=== PATIENT | male | born 1990 | race Caucasian/White ===

== ENCOUNTER 2019-06-29 22:44 | Emergency (ER) | payer OTHER, SELFPAY ==
--- NOTE | ~2019-06-29 | XR_ITS ---
EXAMINATION: XR chest 2V 06/30/2019 00:31 INDICATION: Shortness of breath PROCEDURE: 2 view chest COMPARISON: 05/16/2019 FINDINGS: The lungs are clear. The cardiomediastinal silhouette is within normal limits. There are no pleural effusions. There is no pneumothorax suspected. IMPRESSION: 1: NO ACUTE CARDIOPULMONARY DISEASE. Reviewed, dictated and finalized at location A. 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
[2019-06-29 23:02] VITALS: BP 138/98; PULSE 74; RESP 20; TEMP 37; O2SAT 99
[2019-06-30 00:03] VITALS: BP 123/91; PULSE 72; RESP 20; TEMP 36.8; O2SAT 100
--- NOTE | 2019-06-30 00:19 | ED.FEVER ---
HPI - Fever General Chief Complaint: Fever Stated Complaint: Cough,Fever,Chills Time Seen by Provider: 06/30/19 00:19 Source: patient and RN notes reviewed Mode of arrival: ambulatory Limitations: no limitations History of Present Illness HPI Narrative: Pt is a 29 y/o male presenting to the ED c/o fever. Pt reports he has been experiencing a subjective fever for about 1-2 weeks. Pt also reports chills and productive cough with yellow and green phlegm. Pt states he made an appointment with his PCP for 07/12 but notes his instructed him to come in due to waking the baby up tonight. Pertinent past history: other (None) Onset (ago): week(s) (1-2) Associated symptoms: chills and cough (Productive with green and yellow phlegm) Related Data Allergies Allergy/AdvReac Type Severity Reaction Status Date / Time No Known Allergies Allergy Verified 06/30/19 00:03 Review of Systems Review of Systems: All systems reviewed & are unremarkable except as noted in HPI and below Constitutional: Constitutional: Reports chills and Reports fever(s) (Subjective) Respiratory: Respiratory: Reports cough (Productive with green and yellow phlegm) PMFSH Past Medical History Medical History Bronchitis HLD (hyperlipidemia) Pharyngitis Surgical History Surgical History H/O right wrist surgery History of cardiac cath 2016 History of tympanostomy Family History Family History Other Cerebrovascular accident Diabetes mellitus Family history of arthritis Family history of congestive heart failure Family history of gout Family history of heart disease in male family member before age 55 Family history of malignant neoplasm Hypertension Social History Social History Smoking status: Former smoker Gender identity (if verbalized by the patient): Male Exam Narrative: Exam Narrative: GENERAL: Well-appearing, well-nourished, and in no acute distress. HEAD: Normocephalic, atraumatic. EYES: PERRLA and EOMI. ENT: Nares clear, Mucous membranes moist. NECK: Supple. CHEST: Clear to auscultation. No respiratory distress. HEART: Regular rate and rhythm. No murmur heard. Normal peripheral pulses. ABDOMEN: Soft, non tender, non distended, normal active bowel sounds. EXTREMITIES: Normal range of motion. No edema. SKIN: Warm, dry, no rash. NEURO: No focal deficits. Alert and oriented x3. PSYCH: Normal mood and affect. 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 Advised him to take antibiotic as prescribed, follow-up with his primary doctor. Vital Signs Vital signs: Vital Signs Temperature 37.0 C 06/29/19 23:02 Pulse Rate 74 06/29/19 23:02 Respiratory Rate 20 06/29/19 23:02 Blood Pressure 138/98 H 06/29/19 23:02 Pulse Oximetry 99 06/29/19 23:02 Temperature 36.8 C 06/30/19 00:03 Pulse Rate 72 06/30/19 00:03 Respiratory Rate 20 06/30/19 00:03 Blood Pressure 123/91 H 06/30/19 00:03 Pulse Oximetry 100 06/30/19 00:03 MDM - Fever Lab Data Labs: Influenza A Screen Negative Reference Range: Negative Influenza B Screen Negative Reference Range: Negative Imaging Data My impression: CXR 0030 06/30/2019 Impression by ED Physician: Negative. Discharge Plan Discharge Clinical Impression: Bronchitis Patient Disposition: Home, Self-Care Condition: Stable Instructions: Acute Bronchitis (ED) Prescriptions: New azithromycin [Zithromax Z-Kendall] 250 mg tablet 250 mg PO DAILY 5 Days Qty: 5 RF: 0 Follow-up/Referrals: UNKNOWN,DOCTOR [Primary Care Provider] - Garfield Thompson MD [Physician] - Time of Disposition: 01:09
[2019-06-30 01:18] VITALS: BP 143/88; PULSE 77; RESP 24; O2SAT 99
== END 2019-06-30 01:18 | disposition home or self-care (01) ==
PROVIDERS: Emergency Provider Family Medicine
DX: J40 Bronchitis, not specified as acute or chronic (principal); E78.5 Hyperlipidemia, unspecified; Z87.891 Personal history of nicotine dependence
CPT/HCPCS: 71046; 87804; 99283

== ENCOUNTER 2019-09-28 00:30 | Emergency (ER) | payer OTHER, SELFPAY ==
[2019-09-28] VITALS (20 sets, daily range): BP systolic 111–133; BP diastolic 79–96; PULSE 64–101; RESP 13–23; TEMP 36.6–36.8; O2SAT 90–100
--- NOTE | ~2019-09-28 | XR_ITS ---
EXAMINATION: XR chest 2V DATE: 09/28/2019 01:09 INDICATION: Midline chest pain. TECHNIQUE: Frontal and lateral views of the chest were obtained. COMPARISON: Chest 2 views 06/30/2019, thoracic spine CT 05/16/2019 FINDINGS: The chest demonstrates clear lungs without pneumonia, pleural effusion, or pneumothorax. Th e heart size is normal. IMPRESSION: 1. No acute cardiopulmonary disease. Reviewed, dictated and finalized at location A.
--- NOTE | 2019-09-28 00:51 | ECG_ITS ---
Measurements Intervals [place] Rate: 92 P: 29 NH: 163 QRS: 18 QRSD: 101 T: -5 QT: 337 QTc: 417 Interpretive Statements SINUS RHYTHM WITH SINUS ARRHYTHMIA BORDERLINE ST-T WAVE ABNORMALITY- INFERIOR LEADS BASELINE ARTIFACT- V1 BORDERLINE ECG Electronically Signed On 09-28-2019 7:04:10 CDT by Luis Saul D.O.
--- NOTE | 2019-09-28 00:51 | ED.CHESTPAIN ---
HPI - Chest Pain General Chief Complaint: Chest Pain Stated Complaint: cp and sob Time Seen by Provider: 09/28/19 00:33 Source: RN notes reviewed History of Present Illness HPI narrative: Patient presents emergency department from home for chest pain. Patient states symptoms began approximately 1 hour ago. States symptoms awoke him from his sleep the pain is located over the left inferior chest and is described as a pressure. The pain does not radiate. Nothing makes the pain better or worse. Notes associated shortness of breath. He denies any fevers or chills abdominal pain nausea vomiting or any other symptoms Related Data Allergies Allergy/AdvReac Type Severity Reaction Status Date / Time No Known Allergies Allergy Verified 06/30/19 00:03 Review of Systems Review of Systems: Narrative: Gen.: Denies fevers or chills Eyes: Denies eye pain or visual change ENT: Denies congestion Respiratory: Reports associated shortness of breath CV: Reports chest pain GI: Denies abdominal pain nausea, emesis or diarrhea denies burning, urgency, frequency or hematuria Musculoskeletal: Denies back pain or muscle pain Neuro: Denies numbness, tingling, weakness or focal weakness Skin: Denies rash Except as documented, all other systems reviewed and negative PMFSH Past Medical History Medical History Bronchitis HLD (hyperlipidemia) Pharyngitis Social History Social History Smoking status: Former smoker Gender identity (if verbalized by the patient): Male Exam Narrative: Exam Narrative: APPEARANCE: No acute distress, nontoxic, resting in bed EYES: EOMI HEENT: Normocephalic, atraumatic, OMM RESPIRATORY: No respiratory distress Clear to auscultation bilaterally with no rhonchi wheezing or rales. CARDIOVASCULAR: Regular rate and rhythm without murmurs rubs or gallops. ABDOMINAL: Soft, nontender, nondistended, no rebound or guarding MUSCULOSKELETAl: Moves all extremities. No clubbing, cyanosis or edema. NEURO: Awake and alert. Following commands, speech normal, no focal deficits SKIN:: Warm, dry. No rashes lesions or abrasions PSYCHIATRIC: Normal affect/mood, Course Course Emergency Course: Patient states pain was almost completely resolved with GI cocktail and is now resolved with Toradol Discussed with patient results of workup and diagnosis. Discussed need for follow-up with primary care, proper use of medication, and reasons to return to the emergency department. Patient understands and agrees to current treatment plan Vital Signs Vital signs: Vital Signs Temperature 98.3 F 09/28/19 00:35 Pulse Rate 88 09/28/19 00:35 Respiratory Rate 13 09/28/19 00:35 Blood Pressure 131/96 H 09/28/19 00:35 Pulse Oximetry 99 09/28/19 00:35 Temperature 98.3 F 09/28/19 00:35 Pulse Rate 72 09/28/19 03:15 Respiratory Rate 20 09/28/19 03:15 Blood Pressure 111/79 09/28/19 02:01 Pulse Oximetry 98 09/28/19 03:15 MDM - Chest Pain MDM Narrative Medical decision making narrative: Patient's EKGs and labs are without significant high risk changes. Cardiac risk factors reviewed. Patient is felt likely low risk for ACS and reasonable for further risk stratification testing as an outpatient. Pain was not sudden or maximal in onset without tearing or ripping quality. No other signs of symptoms suggest aortic dissection. A low-risk Wells criteria is noted, PE is felt to be unlikely. No pneumonia seen on evaluation today. Patient is felt to be a reasonable candidate for continued evaluation as an outpatient Lab Data Result diagrams: 09/28/19 01:00 09/28/19 01:00 Labs: Lab Results 09/28/19 09/28/19 09/28/19 Range/Units 01:00 01:00 01:00 WBC 9.6 (4.5-10.0) K/mm3 RBC 5.38 (4.6-6.20) M/mm3 Hgb 15.7 (14.0-18.0) g/dL Hct 46.4 (42.0-52.0) % MCV 86.2 (80-100)
[2019-09-28 01:10] LABS: Basophils Absolute Auto 0.1 K/mm3 (0.0-0.1); Basophils Percent Auto 0.6 % (0.2-1.2); Eosinophils Absolute Auto 0.3 K/mm3 (0-0.3); Eosinophils Percent Auto 3.2 % (0-4.4); Hematocrit 46.4 % (42.0-52.0); Hemoglobin 15.7 g/dL (14.0-18.0); Immature Granulocyte Absolute 0.04 K/mm3 (0.00-0.031); Immature Granulocyte Percent A 0.4 % (0-0.5); Lymphocytes Absolute Auto 2.88 K/mm3 (0.9-3.2); Mean Corpuscular HGB Conc 33.8 g/dl (32-36); Mean Corpuscular Hemoglobin 29.2 pg (26-34); Mean Corpuscular Volume 86.2 fl (80-100); Mean Platelet Volume 10.8 fl (7.4-10.4); Monocytes Absolute Auto 0.8 K/mm3 (0.1-0.6); Monocytes Percent Auto 8.4 % (2.6-8.5); Neutrophils Absolute Auto 5.5 K/mm3 (1.3-6.7); Neutrophils Percent Auto 57.4 % (45.5-73.1); Platelet Count Result 236 k/mm3 (150-375); Red Blood Count 5.38 M/mm3 (4.6-6.20); Red Cell Distribution Width 12.7 % (11.5-14.5); White Blood Count 9.6 K/mm3 (4.5-10.0)
[2019-09-28 01:21] LABS: Alanine Aminotransferase 43 U/L (4-50); Albumin Level 4.8 g/dL (3.5-5.1); Alkaline Phosphatase 103 U/L (38-126); Aspartate Amino Transferase 31 U/L (17-59); Bilirubin,Total 0.8 mg/dL (0.2-1.3); Blood Urea Nitrogen 16 mg/dL (9-20); Calcium 9.8 mg/dL (8.4-10.2); Carbon Dioxide 30 mmol/L (22-30); Chloride 101 mmol/L (98-107); Estimated CRCL calculation 128 ml/min; Estimated Glomerular Filt Rate > 60; Glucose 106 mg/dL (75-110); Lipase 92 U/L (23-300); Potassium 3.6 mmol/L (3.4-5.0); Sodium 138 mmol/L (137-145)
[2019-09-28 01:33] LABS: Troponin I < 0.012 ng/mL (0.000-0.034)
[2019-09-28 01:39] LABS: INR 0.9; Prothrombin Time 12.1 Seconds (11.1-14.7)
[2019-09-28 01:42] LABS: Partial Thromboplastin Time 25.8 SECONDS (22.3-36.8)
[2019-09-28 01:46] LABS: D Dimer < 0.22 ug/mL (<0.48)
[2019-09-28] MEDS: FAMOTIDINE 20 MG/2 ML VIAL IV PUSH (01:57)
[2019-09-28] MEDS: KETOROLAC 30 MG/ML VIAL (*BKC) IV PUSH (01:57)
[2019-09-28 04:21] LABS: Troponin I < 0.012 ng/mL (0.000-0.034)
== END 2019-09-28 04:38 | disposition home or self-care (01) ==
PROVIDERS: Emergency Provider Emergency Medicine
DX: R07.89 Other chest pain (principal); E78.5 Hyperlipidemia, unspecified; Z87.891 Personal history of nicotine dependence; R94.31 Abnormal electrocardiogram [ECG] [EKG]
CPT/HCPCS: 36415; 71046; 80053; 83690; 84484; 85025; 85380; 85610; 85730; 93005; 96374; 96375; 99284; A9270; J1885

== ENCOUNTER 2019-12-23 00:14 | Emergency (ER) | payer OTHER, SELFPAY ==
--- NOTE | ~2019-12-23 | CT_ITS ---
EXAMINATION: CT abdomen pelvis w con DATE: 12/23/2019 02:39 INDICATION: Right upper quadrant abdominal pain. TECHNIQUE: Computed tomography (CT) of the abdomen and pelvis was performed with 100 mL Omnipaque-350 intravenous contrast. Automated exposure control and iterative reconstruction technique were employe d. The dose-length product was 1524.36 mGy-cm. COMPARISON: None FINDINGS: Lung bases are clear. Heart size is normal. No pericardial or pleural effusion. Heterogeneous pattern of diffuse hepatic steatosis. Gallbladder, spleen, pancreas, bilateral adrenal glands and kidneys ar e normal. Bowels including the appendix are normal. Small bilateral fat-containing inguinal hernias. Bladder and prostate are normal. No free intraperitoneal gas or fluid. No pathologically enlarged abd ominal or pelvic lymphadenopathy. Bones are unremarkable. IMPRESSION: 1. No acute intra-abdominal/pelvic process. 2. Small bilateral fat-containing inguinal hernias. 3. Diffuse hepatic steatosis. Reviewed, dictated and finalized at location A.
[2019-12-23 00:17] VITALS: BP 140/86; PULSE 74; RESP 20; TEMP 36.2; O2SAT 100
[2019-12-23 01:15] LABS: Basophils Percent Auto 0.5 % (0.2-1.2); Eosinophils Absolute Auto 0.3 K/mm3 (0-0.3); Eosinophils Percent Auto 4.7 % (0-4.4); Hematocrit 44.6 % (42.0-52.0); Hemoglobin 15.1 g/dL (14.0-18.0); Immature Granulocyte Absolute 0.02 K/mm3 (0.00-0.031); Immature Granulocyte Percent A 0.3 % (0-0.5); Lymphocytes Absolute Auto 2.07 K/mm3 (0.9-3.2); Lymphocytes Percent Auto 33.8 % (18.3-44.2); Mean Corpuscular HGB Conc 33.9 g/dl (32-36); Mean Corpuscular Hemoglobin 29.5 pg (26-34); Mean Corpuscular Volume 87.3 fl (80-100); Mean Platelet Volume 10.9 fl (7.4-10.4); Monocytes Absolute Auto 0.5 K/mm3 (0.1-0.6); Monocytes Percent Auto 8.6 % (2.6-8.5); Neutrophils Absolute Auto 3.2 K/mm3 (1.3-6.7); Neutrophils Percent Auto 52.1 % (45.5-73.1); Platelet Count Result 215 k/mm3 (150-375); Red Blood Count 5.11 M/mm3 (4.6-6.20); Red Cell Distribution Width 12.4 % (11.5-14.5); White Blood Count 6.1 K/mm3 (4.5-10.0)
[2019-12-23 01:18] LABS: Add Urine Microscopic? YES; Appearance Urine Clear (Clear); Bilirubin Urine Negative (Negative); Blood Urine Negative (Negative); Color Urine Yellow (Yellow); Glucose Urine UA Negative (Negative); Ketones Urine Negative (Negative); Leukocyte Esterase Ur Negative LEU/UL (Negative); Nitrate Urine Negative (Negative); Protein Urine Negative (Negative); RBC Urine 0-2 /hpf (0-2); Specific Grav Ur 1.019 (1.001-1.035); WBC Urine 0-3 /hpf
[2019-12-23 01:27] LABS: Alanine Aminotransferase 45 U/L (4-50); Albumin Level 4.6 g/dL (3.5-5.1); Alkaline Phosphatase 95 U/L (38-126); Anion Gap 7 mmol/L (8-16); Aspartate Amino Transferase 34 U/L (17-59); Bilirubin,Total 0.7 mg/dL (0.2-1.3); Blood Urea Nitrogen 16 mg/dL (9-20); Calcium 9.4 mg/dL (8.4-10.2); Carbon Dioxide 28 mmol/L (22-30); Chloride 103 mmol/L (98-107); Estimated CRCL calculation 124 ml/min; Estimated Glomerular Filt Rate > 60; Glucose 97 mg/dL (75-110); Lipase 86 U/L (23-300); Potassium 3.6 mmol/L (3.4-5.0); Sodium 138 mmol/L (137-145)
--- NOTE | 2019-12-23 02:04 | ED.ABDPAIN ---
HPI - Abdominal Pain General Chief Complaint: Abdominal Pain Stated Complaint: RUQ pain, nausea Time Seen by Provider: 12/23/19 01:27 Source: patient Mode of arrival: ambulatory Limitations: no limitations History of Present Illness HPI narrative: This patient is 29 year old male who presents for evaluation of right upper abdominal pain. Patient states he developed sudden onset right upper abdominal pain on . This pain is nonradiating and it is worse with movement and palpation . He denies vomiting or fever. He also denies urinary symptoms. He is worried he may have broken a rib but he denies any injury. He also denies cough or sob. Related Data Home Medications Medication Instructions Recorded Confirmed No Home Medications 12/23/19 12/23/19 Allergies Allergy/AdvReac Type Severity Reaction Status Date / Time No Known Allergies Allergy Verified 12/23/19 00:19 Review of Systems Review of Systems: All systems reviewed & are unremarkable except as noted in HPI and below Constitutional: Constitutional: Denies chills and Denies fever(s) Cardiovascular: Cardiovascular: Denies chest pain Respiratory: Respiratory: Denies cough and Denies dyspnea Gastrointestinal: Gastrointestinal: Reports abdominal pain, Denies diarrhea, Reports nausea and Denies vomiting Genitourinary: Genitourinary: Denies hematuria, Denies oliguria and Denies dysuria Musculoskeletal: Musculoskeletal: Denies back pain [facility] Social History Social History Smoking status: Former smoker Gender identity (if verbalized by the patient): Male Exam Const: General: no acute distress and alert Orientation/consciousness: patient oriented x3 Resp: Effort & Inspection: normal respiratory effort, no retractions and no use of accessory muscles Auscultation: clear to auscultation bilaterally Cardio: Rate: regular rate Rhythm: regular rhythm Heart sounds: no murmurs GI: GI Palp: Yes Soft to palpation, Yes Tenderness to palpation present (GI) (RUQ), No Guarding due to palpation present (GI), No Rigid due to palpation and No Hernia present Back/Spine/Pelvis: Back: no CVA tenderness Skin: General skin exam: normal color Rashes: no rashes Neuro: General: patient oriented x3 and moves all extremities Course Reevaluation(s) Reevaluation #1: I Discussed with patient labs are unremarkable and CT did not show any cause of pain. Date: 12/23/19 Time: 03:37 Vital Signs Vital signs: Vital Signs Temperature 97.1 F L 12/23/19 00:17 Pulse Rate 74 12/23/19 00:17 Respiratory Rate 20 12/23/19 00:17 Blood Pressure 140/86 12/23/19 00:17 Pulse Oximetry 100 12/23/19 00:17 Temperature 97.1 F L 12/23/19 00:17 Pulse Rate 90 12/23/19 04:25 Respiratory Rate 16 12/23/19 04:25 Blood Pressure 138/90 12/23/19 04:25 Pulse Oximetry 98 12/23/19 04:25 MDM - Abdominal Pain Differential Diagnosis Differential diagnosis: Likely abdominal pain, calculus of kidney, diverticulitis, pancreatitis and other (cholecystitis) Lab Data Attestation: I reviewed the patient's lab results. Result diagrams: 12/23/19 01:04 12/23/19 01:04 Labs: Lab Results 12/23/19 12/23/19 12/23/19 Range/Units 01:04 01:04 01:05 WBC 6.1 (4.5-10.0) K/mm3 RBC 5.11 (4.6-6.20) M/mm3 Hgb 15.1 (14.0-18.0) g/dL Hct 44.6 (42.0-52.0) % MCV 87.3 (80-100) fl MCH 29.5 (26-34) pg MCHC 33.9 (32-36) g/dl RDW 12.4 (11.5-14.5) % Plt Count 215 (150-375) k/mm3 MPV 10.9 H (7.4-10.4) fl Immature Gran % (Auto) 0.3 (0-0.5) % Neut % (Auto) 52.1 (45.5-73.1) % Lymph % (Auto) 33.8 (18.3-44.2) % Antelope % (Auto) 8.6 H (2.6-8.5) % Eos % (Auto) 4.7 H (0-4.4) % Baso % (Auto) 0.5 (0.2-1.2) % Lymph # (Auto) 2.07 (0.9-3.2) K/mm3 Antelope # (Auto) 0.5 (0.1-0.6) K/mm3 Eos # (Auto) 0.3 (0-0.3) K/mm3 Bas
[2019-12-23 04:25] VITALS: BP 138/90; PULSE 90; RESP 16; O2SAT 98
== END 2019-12-23 04:30 | disposition home or self-care (01) ==
PROVIDERS: Emergency Provider General Practice
DX: R10.11 Right upper quadrant pain (principal); Z87.891 Personal history of nicotine dependence; K40.90 Unilateral inguinal hernia, without obstruction or gangrene, not specified as recurrent; K76.0 Fatty (change of) liver, not elsewhere classified
CPT/HCPCS: 36415; 74177; 80053; 81001; 83690; 85025; 99284; Q9967

== ENCOUNTER 2020-07-16 17:44 | Emergency (ER) | payer OTHER, SELFPAY ==
--- NOTE | ~2020-07-16 | CT_ITS ---
EXAMINATION: CT abdomen pelvis w con EXAM DATE: 07/16/2020 19:13 INDICATION: Dysuria, low back pain. Burning. TECHNIQUE: Spiral CT of the abdomen and pelvis was performed following intravenous injection of 100 m L Omnipaque 350. Axial, coronal and sagittal images were reviewed. The dose-length product (DLP) fo r this examination was 1412.57 mGy-cm. The exposure was tailored according to patient size (auto mA exposure control), and iterative reconstruction (ASIR) was used as additional dose reduction techniqu e. Comparison is made to prior examination from 12/23/2019. FINDINGS: There is hepatic steatosis without suspicious focal lesion identified. Spleen, adrenal glan ds, pancreas are unremarkable. Gallbladder is unremarkable. No biliary obstruction. Portal and spl enic veins are patent. Kidneys enhance symmetrically. There is no hydronephrosis. The prostate is unremarkable. The bladder is unremarkable. There is no retroperitoneal or pelvic lymphadenopathy. There are small bilateral inguinal fat-containing hernias. Interval development of 1 cm rounded fat density along the near the descending colon, age indetermina te region of fat necrosis, new compared to previous examination. Indicated on image 103. The appendix is normal. The stomach and small bowel are unremarkable. There is moderate amount of colonic stool . No free intraperitoneal gas. The heart is normal in size. There are no pericardial or pleural effusions. Interval development of left basilar tree-in-bud distribution groundglass opacities, appearance most consistent with acute infectious process. Would be atypical appearance for COVID pneumonia, no eviden ce of right-sided involvement. The bones are unremarkable. IMPRESSION: 1. Left basilar ground glass opacities suspicious for developing acute infectious process. 2. Small region of left abdominal fat necrosis, age indeterminate. 3. Hepatic steatosis. 4. Small inguinal hernias. Reviewed, dictated and finalized at location A. IMPRESSION: 1. Left basilar ground glass opacities suspicious for developing acute infecti ous process. 2. Small region of left abdominal fat necrosis, age indeterminate. 3. Hepatic steatosis. 4. Small inguinal hernias.
--- NOTE | ~2020-07-16 | XR_ITS ---
EXAMINATION: XR chest 1V portable EXAM DATE: 07/16/2020 19:38 INDICATION: Abnormal appearance on CT, dysuria 2-3 days. Tachycardic. Difficulty urinating 2-3 days. TECHNIQUE: Frontal and lateral projections of the chest obtained and reviewed. Comparison is made to prior examination from 09/28/2019. Correlation was made with CT abdomen pelvis earlier same date. FINDINGS: Small left basilar reticulonodular groundglass opacities difficult to appreciate by this m odality, but there is also possible small amount of right midlung zone involvement, region was not im aged on the CT abdomen pelvis. No confluent consolidation, pneumothorax or pleural effusion suspected . Cardiomediastinal silhouette is normal. There are no osseous abnormalities identified. IMPRESSION: Possible small right midlung zone reticulonodular opacities, can't identify those seen on CT at the left lung base. Appearance was suspicious for infectious process. Please clinically correl ate. Reviewed, dictated and finalized at location A. IMPRESSION: Possible small right midlung zone reticulonodular opacities, can't identify those seen on CT at the left lung base. Appearance was suspicious for infectious process. Please clinically correlate.
[2020-07-16 18:03] VITALS: BP 129/96; PULSE 130; RESP 20; TEMP 35.7; O2SAT 100
[2020-07-16 18:21] LABS: Basophils Absolute Auto 0.1 K/mm3 (0.0-0.1); Basophils Percent Auto 0.3 % (0.2-1.2); Eosinophils Absolute Auto 0.2 K/mm3 (0-0.3); Eosinophils Percent Auto 1.1 % (0-4.4); Hematocrit 42.2 % (42.0-52.0); Hemoglobin 14.4 g/dL (14.0-18.0); Immature Granulocyte Absolute 0.06 K/mm3 (0.00-0.031); Immature Granulocyte Percent A 0.4 % (0-0.5); Lymphocytes Absolute Auto 1.39 K/mm3 (0.9-3.2); Lymphocytes Percent Auto 8.5 % (18.3-44.2); Mean Corpuscular HGB Conc 34.1 g/dl (32-36); Mean Corpuscular Hemoglobin 29.2 pg (26-34); Mean Corpuscular Volume 85.6 fl (80-100); Mean Platelet Volume 10.5 fl (7.4-10.4); Monocytes Percent Auto 5.8 % (2.6-8.5); Neutrophils Absolute Auto 13.7 K/mm3 (1.3-6.7); Neutrophils Percent Auto 83.9 % (45.5-73.1); Platelet Count Result 246 k/mm3 (150-375); Red Blood Count 4.93 M/mm3 (4.6-6.20); Red Cell Distribution Width 12.3 % (11.5-14.5); White Blood Count 16.3 K/mm3 (4.5-10.0)
[2020-07-16 18:22] LABS: Add Urine Microscopic? NO; Appearance Urine Clear (Clear); Bilirubin Urine Negative (Negative); Blood Urine Negative (Negative); Color Urine Straw (Yellow); Glucose Urine UA Negative (Negative); Ketones Urine Negative (Negative); Leukocyte Esterase Ur Negative LEU/UL (Negative); Nitrate Urine Negative (Negative); Protein Urine Negative (Negative); Specific Grav Ur 1.009 (1.001-1.035); Urobilinogen Urine Negative mg/dL (<2.0)
[2020-07-16 18:31] LABS: Anion Gap 7 mmol/L (8-16); Blood Urea Nitrogen 15 mg/dL (9-20); Calcium 9.7 mg/dL (8.4-10.2); Carbon Dioxide 30 mmol/L (22-30); Chloride 98 mmol/L (98-107); Estimated CRCL calculation 118 ml/min; Estimated Glomerular Filt Rate > 60; Glucose 106 mg/dL (75-110); Sodium 135 mmol/L (137-145)
--- NOTE | 2020-07-16 19:02 | ED.MALEGU ---
HPI - Male Genitourinary General Chief complaint: Urogenital-Male Stated complaint: burn with urination Time Seen by Provider: 07/16/20 18:14 History of Present Illness HPI Narrative: Dysuria for the past 5 days. Today it is severe. Associated with lower abdominal pain and nausea. These are new symptoms. No discharge, frequency, urgency. Related Data Home Medications Medication Instructions Recorded Confirmed cyclobenzaprine 10 mg PO 07/16/20 gabapentin 07/16/20 pantoprazole 40 mg PO 07/16/20 tramadol 50 mg PO 07/16/20 Allergies Allergy/AdvReac Type Severity Reaction Status Date / Time No Known Allergies Allergy Verified 07/16/20 18:11 Review of Systems Review of Systems: All systems reviewed & are unremarkable except as noted in HPI and below Constitutional: Constitutional: Denies fever(s) Cardiovascular: Cardiovascular: Denies chest pain Respiratory: Respiratory: Denies dyspnea Gastrointestinal: Gastrointestinal: Reports abdominal pain and Reports nausea Genitourinary: Genitourinary: Reports as per HPI and Denies hematuria Neurologic: Reports system reviewed and no additional complaints, except as documented [facility] Past Medical History Medical History (Updated 07/17/20 @ 00:00 by Garrick Quezada) Bronchitis HLD (hyperlipidemia) Pharyngitis Surgical History Surgical History H/O right wrist surgery History of cardiac cath 2016 History of tympanostomy Family History Family History Other Cerebrovascular accident Diabetes mellitus Family history of arthritis Family history of congestive heart failure Family history of gout Family history of heart disease in male family member before age 55 Family history of malignant neoplasm Hypertension Social History Social History Smoking status: Former smoker Gender identity (if verbalized by the patient): Male Exam Const: General: no acute distress and alert Orientation/consciousness: patient oriented x3 HENMT: Head: normal to inspection Neck: Neck: normal visual inspection and no lymphadenopathy Resp: Effort & Inspection: normal respiratory effort Auscultation: clear to auscultation bilaterally, no rales, no rhonchi and no wheezes Cardio: Jugular venous distension: no JVD Rate: regular rate Rhythm: regular rhythm Heart sounds: no murmurs GI: Inspection: non-distended GI Palp: Yes Soft to palpation and Yes Tenderness to palpation present (GI) (periumbilical) : Testes: Testes normal Skin: General skin exam: normal color Neuro: General: patient oriented x3 and moves all extremities Speech: normal speech Gait exam (Neuro): Normal gait present Extrem: General: no edema Psych: Appearance: well kempt Affect: normal affect Course Vital Signs Vital signs: Vital Signs Temperature 35.7 C L 07/16/20 18:03 Pulse Rate 130 H 07/16/20 18:03 Respiratory Rate 20 07/16/20 18:03 Blood Pressure 129/96 H 07/16/20 18:03 Pulse Oximetry 100 07/16/20 18:03 Temperature 36.7 C 07/16/20 20:14 Pulse Rate 94 07/16/20 20:14 Respiratory Rate 16 07/16/20 20:14 Blood Pressure 128/86 07/16/20 20:14 Pulse Oximetry 98 07/16/20 20:14 MDM - Male Genitourinary MDM Narrative Medical decision making narrative: CT and CXR suspicious for pneumonia. Significantly elevated WBC. I'm not sure how this relates to his presenting complaint, but I will treat for pneumonia. This should give good tract coverage as well. Differential Diagnosis Differential diagnosis: Likely urinary tract infection, urethritis and other (kidney stone) Medical Records Attestation: I reviewed the patient's medical records. Lab Data Attestation: I reviewed the patient's lab results. Result diagrams: 07/16/20 18:14 07/16/20 18:14 Labs: Lab Results
[2020-07-16 19:20] LABS: Alanine Aminotransferase 61 U/L (4-50); Albumin Level 4.2 g/dL (3.5-5.1); Alkaline Phosphatase 102 U/L (38-126); Aspartate Amino Transferase 38 U/L (17-59); Bilirubin,Total 0.8 mg/dL (0.2-1.3); Lipase 51 U/L (23-300)
[2020-07-16] MEDS: KETOROLAC 30 MG/ML VIAL (*BKC) IV PUSH (19:22)
[2020-07-16] MEDS: SODIUM CHLORIDE 0.9% IV 1,000 ML 999 ML IV CONT (19:23)
--- NOTE | 2020-07-16 20:13 | PC.NURSE ---
pt stated he didnt have pneumonia and was discharged home. md mo
[2020-07-16 20:14] VITALS: BP 128/86; PULSE 94; RESP 16; TEMP 36.7; O2SAT 98
== END 2020-07-16 20:14 | disposition home or self-care (01) ==
PROVIDERS: Emergency Provider Emergency Medicine; PCP Nurse Practitioner Family
DX: J18.9 Pneumonia, unspecified organism (principal); R30.0 Dysuria; E78.5 Hyperlipidemia, unspecified; Z87.891 Personal history of nicotine dependence; K40.90 Unilateral inguinal hernia, without obstruction or gangrene, not specified as recurrent; K76.0 Fatty (change of) liver, not elsewhere classified
CPT/HCPCS: 36415; 71045; 74177; 80048; 80076; 81003; 83690; 85025; 96361; 96374; 99284; J1885; J7030; Q9967

== ENCOUNTER 2021-05-25 02:56 | Emergency (ER) | payer OTHER, SELFPAY ==
--- NOTE | ~2021-05-25 | XR_ITS ---
EXAMINATION: XR chest 2V DATE: 05/25/2021 03:33 INDICATION: Dyspnea. COVID-19 positive. TECHNIQUE: Frontal and lateral views of the chest were obtained. COMPARISON: Chest single view 07/16/2020 FINDINGS: The chest demonstrates clear lungs without pneumonia, pleural effusion, or pneumothorax. Th e heart size is normal. IMPRESSION: 1. No acute cardiopulmonary disease. Reviewed, dictated and finalized at location A. [employer]
[2021-05-25 03:00] VITALS: BP 151/94; PULSE 84; RESP 20; TEMP 37.2; O2SAT 100
[2021-05-25 03:08] VITALS: O2SAT 100
--- NOTE | 2021-05-25 03:18 | ED.SOB ---
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 He has been having some shortness of breath cough for the past 24 hours. Symptoms are getting worse tonight he has pain with inspiration he was concerned so he came to the ER for evaluation. He denies nausea vomiting or diarrhea. He is not vaccinated. Related Data Home Medications Medication Instructions Recorded Confirmed cyclobenzaprine 10 mg PO 07/16/20 gabapentin 07/16/20 pantoprazole 40 mg PO 07/16/20 tramadol 50 mg PO 07/16/20 Allergies Allergy/AdvReac Type Severity Reaction Status Date / Time No Known Allergies Allergy Verified 05/25/21 03:13 Review of Systems Review of Systems: CONSTITUTIONAL: Denies fever, chills, or sweats. EYES: Denies visual changes, redness, or discharge. ENT: Denies rhinorrhea, congestion, sore throat, or otalgia. CARDIOVASCULAR: Denies chest pain, palpitations, or edema. RESPIRATORY: Reports shortness of breath and cough GASTROINTESTINAL: Denies abdominal pain, nausea, vomiting, or diarrhea. GENITOURINARY: Denies dysuria or hematuria. SKIN: Denies rash or itching. MUSCULOSKELETAL: Denies back pain, joint pain, or myalgia. NEUROLOGIC: Denies headache, numbness, dizziness, or weakness. PSYCHIATRIC: Denies anxiety or depression. All systems reviewed & are unremarkable except as noted in HPI and below [facility] Past Medical History Medical History (Updated 05/25/21 @ 04:28 by Kevon Castillo MD) Bronchitis HLD (hyperlipidemia) Pharyngitis Surgical History Surgical History H/O right wrist surgery History of cardiac cath 2016 History of tympanostomy Family History Family History Other Cerebrovascular accident Diabetes mellitus Family history of arthritis Family history of congestive heart failure Family history of gout Family history of heart disease in male family member before age 55 Family history of malignant neoplasm Hypertension Social History Social History Smoking status: Former smoker Gender identity (if verbalized by the patient): Male Exam Narrative: GENERAL: Well-appearing, well-nourished, and in no acute distress. HEAD: Normocephalic, atraumatic. EYES: PERRLA and EOMI. ENT: Nares clear, no rhinorrhea or epistaxis. Mucous membranes moist. NECK: Supple. No masses. No JVD CHEST: Clear to auscultation. No respiratory distress. No wheezes rales or rhonchi HEART: Regular rate and rhythm. No murmur heard. Normal peripheral pulses. ABDOMEN: Soft, nontender, nondistended, normal active bowel sounds. EXTREMITIES: Normal range of motion. No edema. SKIN: Warm, dry, no rash. NEURO: No focal deficits. Alert and oriented x3. PSYCH: Normal mood and affect. Course Reevaluation(s) Reevaluation #1: Patient resting comfortably labs reviewed with patient. Patient comfortable outpatient supportive therapies. Date: 05/25/21 Time: 04:26 Vital Signs Vital signs: Vital Signs Temperature 37.2 C 05/25/21 03:00 Pulse Rate 84 05/25/21 03:00 Respiratory Rate 20 05/25/21 03:00 Blood Pressure 151/94 H 05/25/21 03:00 Pulse Oximetry 100 05/25/21 03:00 Temperature 37.2 C 05/25/21 03:00 Pulse Rate 71 05/25/21 04:59 Respiratory Rate 18 05/25/21 04:59 Blood Pressure 130/90 05/25/21 04:59 Pulse Oximetry 100 05/25/21 04:59 MDM - SOB/Dyspnea MDM Narrative Medical decision making narrative: H&P as above, vss, pt looks clinically well, exam reassuring, labs clinically unremarkable, img clinically unre
--- NOTE | 2021-05-25 03:22 | PC.NURSE ---
XR at bedside
[2021-05-25] MEDS: SODIUM CHLORIDE 0.9% IV 1,000 ML 999 ML IV CONT (03:43)
[2021-05-25] MEDS: KETOROLAC 15 MG/ML VIAL (*BKC) IV PUSH (03:43)
[2021-05-25 03:53] LABS: Basophils Percent Auto 0.6 % (0.2-1.2); Eosinophils Absolute Auto 0.2 K/mm3 (0-0.3); Hematocrit 43.9 % (42.0-52.0); Hemoglobin 14.9 g/dL (14.0-18.0); Immature Granulocyte Absolute 0.03 K/mm3 (0.00-0.031); Immature Granulocyte Percent A 0.5 % (0-0.5); Lymphocytes Absolute Auto 2.11 K/mm3 (0.9-3.2); Lymphocytes Percent Auto 33.2 % (18.3-44.2); Mean Corpuscular HGB Conc 33.9 g/dl (32-36); Mean Corpuscular Hemoglobin 29.4 pg (26-34); Mean Corpuscular Volume 86.6 fl (80-100); Mean Platelet Volume 10.2 fl (7.4-10.4); Monocytes Absolute Auto 0.8 K/mm3 (0.1-0.6); Monocytes Percent Auto 12.7 % (2.6-8.5); Neutrophils Absolute Auto 3.2 K/mm3 (1.3-6.7); Platelet Count Result 240 k/mm3 (150-375); Red Blood Count 5.07 M/mm3 (4.6-6.20); White Blood Count 6.4 K/mm3 (4.5-10.0)
[2021-05-25 04:03] LABS: Alanine Aminotransferase 50 U/L (4-50); Albumin Level 4.5 g/dL (3.5-5.1); Alkaline Phosphatase 99 U/L (38-126); Anion Gap 7 mmol/L (8-16); Aspartate Amino Transferase 34 U/L (17-59); Bilirubin,Total 0.4 mg/dL (0.2-1.3); Blood Urea Nitrogen 15 mg/dL (9-20); Calcium 9.5 mg/dL (8.4-10.2); Carbon Dioxide 22 mmol/L (22-30); Chloride 107 mmol/L (98-107); Estimated Glomerular Filt Rate > 60; Glucose 107 mg/dL (65-110); Potassium 3.6 mmol/L (3.4-5.0); Sodium 136 mmol/L (137-145)
[2021-05-25 04:59] VITALS: BP 130/90; PULSE 71; RESP 18; O2SAT 100
== END 2021-05-25 05:02 | disposition home or self-care (01) ==
PROVIDERS: Emergency Provider Emergency Medicine; PCP Nurse Practitioner Family
DX: U07.1 COVID-19 (principal); E78.5 Hyperlipidemia, unspecified; Z87.891 Personal history of nicotine dependence
CPT/HCPCS: 36415; 71046; 80053; 85025; 96361; 96374; 99284; J1885; J7030

== ENCOUNTER 2021-07-03 10:13 | Outpatient (CLI) | payer OTHER, SELFPAY ==
--- NOTE | ~2021-07-03 | XR_ITS ---
EXAMINATION: XR lumbar spine 2-3V DATE: 07/03/2021 10:35 INDICATION: Low back pain TECHNIQUE: AP and lateral views of the lumbar spine were obtained. COMPARISON: None. FINDINGS: There is no fracture, dislocation, or subluxation. The vertebral body heights, alignment, a nd intervertebral disc spaces are normal. The paravertebral soft tissues are unremarkable. IMPRESSION: 1. Normal lumbar spine. Reviewed, dictated and finalized at location B. [employer] IMPRESSION: 1. Normal lumbar spine.
== END 2021-07-03 10:14 | disposition home or self-care (01) ==
DX: M54.50 Low back pain, unspecified (principal)
CPT/HCPCS: 72100

== ENCOUNTER 2021-10-16 11:41 | Outpatient (CLI) | payer OTHER, SELFPAY ==
--- NOTE | ~2021-10-16 | NM_ITS ---
EXAMINATION: NM hepatobiliary wo pharm DATE: 10/16/2021 14:42 INDICATION: Right upper quadrant abdominal pain radiating to the back. COMPARISON: CT abdomen and pelvis 07/16/2020 TECHNIQUE: 5 mCi Tc-99m mebrofenin (Choletec) was administered intravenously. Scintigraphic images o f the abdomen were obtained for one hour. Then, the patient drank 8 oz Ensure, and imaging was contin ued for 60 minutes. FINDINGS: There is normal clearance of radiotracer from the blood pool. There is homogeneous tracer u ptake by the liver. Activity progresses to the bowel and gallbladder. Gallbladder ejection fraction (GBEF) was 54%. Note that with this technique, normal GBEF >= 33%. IMPRESSION: 1. Normal hepatobiliary scintigraphy. Reviewed, dictated and finalized at location A.
== END 2021-10-16 11:42 | disposition home or self-care (01) ==
LOC: ANHIMG 11:45
PROVIDERS: Visit Provider Nurse Practitioner
DX: K21.9 Gastro-esophageal reflux disease without esophagitis (principal); R10.11 Right upper quadrant pain; R11.0 Nausea
CPT/HCPCS: 78226; A9537

== ENCOUNTER 2024-10-16 22:30 | Emergency (ER) | payer BC, SELFPAY ==
--- NOTE | ~2024-10-16 | XR_ITS ---
CHEST RADIOGRAPH, PA AND LATERAL CLINICAL HISTORY: SOB . COMPARISON: 05/25/2021 TECHNIQUE: PA and lateral views of the chest. FINDINGS The cardiomediastinal silhouette is unremarkable. The lungs are clear. Visualized osseous structures and soft tissues are unremarkable. IMPRESSION: No focal infiltrate or effusion. Reviewed, dictated and finalized at location A.
[2024-10-16 22:31] VITALS: BP 142/84; PULSE 75; RESP 16; TEMP 36.8; O2SAT 100
--- NOTE | 2024-10-16 22:33 | ECG_ITS ---
Test Date: 2024-10-16 22:37:49 Measurements Intervals Adrian Rate: 72 P: 47 OH: 160 QRS: 17 QRSD: 101 T: 8 QT: 352 QTc: 387 Interpretive Statements SINUS RHYTHM CONSIDER INFERIOR INFARCT, AGE INDETERMINATE ABNORMAL ECG No previous ECG available for comparison Electronically Signed On 10-17-2024 06:15:55 CDT by Luis Saul D.O.
[2024-10-16 22:56] LABS: Basophils Absolute Auto 0.1 K/mm3 (0.0-0.1); Basophils Percent Auto 0.7 % (0.2-1.2); Eosinophils Absolute Auto 0.1 K/mm3 (0-0.3); Eosinophils Percent Auto 1.9 % (0-4.4); Hematocrit 52.7 % (42.0-52.0); Hemoglobin 17.4 g/dL (14.0-18.0); Immature Granulocyte Absolute 0.05 K/mm3 (0.00-0.031); Immature Granulocyte Percent A 0.7 % (0-0.5); Immature Platelet Fraction Pct 6.8 % (0.9-11.2); Lymphocytes Absolute Auto 1.58 K/mm3 (0.9-3.2); Mean Corpuscular Volume 87.8 fl (80-100); Mean Platelet Volume 10.5 fl (7.4-10.4); Monocytes Absolute Auto 0.6 K/mm3 (0.1-0.6); Monocytes Percent Auto 7.3 % (2.6-8.5); Neutrophils Absolute Auto 5.2 K/mm3 (1.3-6.7); Neutrophils Percent Auto 68.4 % (45.5-73.1); Platelet Count Result 151 k/mm3 (150-375); Red Cell Distribution Width 13.2 % (11.5-14.5); White Blood Count 7.5 K/mm3 (4.5-10.0)
[2024-10-16 23:07] VITALS: BP 138/100; PULSE 65; RESP 16; O2SAT 100
[2024-10-16 23:07] LABS: Alanine Aminotransferase 38 U/L (6-50); Albumin Level 4.5 g/dL (3.5-5.1); Alkaline Phosphatase 64 U/L (38-126); Anion Gap 9 mmol/L (4-12); Aspartate Amino Transferase 28 U/L (17-59); Bilirubin,Total 0.8 mg/dL (0.2-1.3); Blood Urea Nitrogen 11 mg/dL (9-20); Calcium 9.4 mg/dL (8.4-10.2); Carbon Dioxide 25 mmol/L (22-30); Chloride 106 mmol/L (98-107); Estimated CRCL calculation 131 ml/min; Estimated Glomerular Filt Rate > 60; Glucose 96 mg/dL (65-110); Potassium 3.7 mmol/L (3.4-5.0); Sodium 140 mmol/L (137-145); Total Protein 7.8 g/dL (6.3-8.2)
[2024-10-16 23:23] VITALS: BP 133/92; PULSE 81; RESP 16; O2SAT 98
--- NOTE | 2024-10-16 23:25 | PC.NURSE ---
Assumed care of patient after receiving bedside report from Angela Garcia RN @ [phone]
[2024-10-16 23:29] LABS: Band Neutrophils Percent 0 % (0-6); Ovalocytes 1+; Platelet Estimate Adequate (Adequate)
[2024-10-16 23:30] LABS: Crenated RBC 1+; Schistocytes None Seen
[2024-10-16 23:52] LABS: Magnesium 2.2 mg/dL (1.6-2.3)
--- NOTE | 2024-10-16 23:52 | ED_ITS ---
HPI - SOB/Dyspnea General Chief Complaint: Shortness of Breath/Dyspnea Stated Complaint: cough two weeks, SOB, slight CP Time Seen by Provider: 10/16/24 22:43 History of Present Illness HPI Narrative: Patient is a 34-year-old male who presents to the ER with a 2 to 3 week history of a dry cough. He reports his lungs feel ?raw. Patient endorses pain ?straight across my chest. He reports he is a previous cigarette smoker but quit. Patient also endorses marijuana use. Approximately 3-4 days ago patient's right side of his throat started hurting and he endorses difficulty swallowing. Patient denies any recent fevers, wheezing, or lower extremity swelling. He endorses a history of a TBI, collapsed lung, multiple fractures, and bronchitis. Related Data Home Medications ?Medication ?Instructions ?Recorded ?Confirmed ?Last Taken ?Type cyclobenzaprine 10 mg tablet 10 mg PO DAILY 07/16/20 01/01/22 Unknown History aspirin 81 mg tablet,delayed 81 mg PO DAILY 10/08/21 01/01/22 Unknown History release (Adult Aspirin Regimen) omeprazole 20 mg tablet,delayed 20 mg PO DAILY 01/01/22 01/01/22 Unknown History release Allergies Allergy/AdvReac Type Severity Reaction Status Date / Time No Known Allergies Allergy Verified 01/01/22 14:26 Review of Systems 2 Review of Systems: All systems reviewed & are unremarkable except as noted in HPI and below [facility] Past Medical History Medical History Obesity Diarrhea Diarrhea GERD (gastroesophageal reflux disease) RUQ abdominal pain Pharyngitis Bronchitis HLD (hyperlipidemia) Surgical History Surgical History H/O right wrist surgery History of cardiac cath 2016 History of tympanostomy Family History Family History Other Cerebrovascular accident Diabetes mellitus Family history of arthritis Family history of congestive heart failure Family history of gout Family history of heart disease in male family member before age 55 Family history of malignant neoplasm Hypertension Social History Social History Smoking status: Former smoker Substance use: current Substance use type: marijuana Last use: 12/31/21 Living arrangements: with family Gender identity (if verbalized by the patient): Male Spiritual care concerns: No Exam 2 Narrative: GENERAL: Well appearing, well-nourished, non-toxic, in no acute distress. HEAD: Normocephalic, atraumatic. NECK: Supple. No adenopathy, no masses. RESPIRATORY: Airway patent, respirations nonlabored. Clear to auscultation bilaterally, no rales, rhonchi, wheezing. CARDIOVASCULAR: Regular rate and rhythm without murmurs, rubs, or gallops. Peripheral pulses 2+ and equal bilaterally. ABDOMINAL: Soft, nontender, nondistended, no hepatosplenomegaly. Normoactive BS. MUSCULOSKELETAL: Moves all extremities. Strength/ROM intact without gross deformities. SKIN: Warm, dry, normal color. No rashes. NEURO: A&O X3. Speech clear. Cranial nerves II-XII intact. No ataxic movements. PSYCHIATRIC: Appropriate mood and affect. Normal interaction. Course Vital Signs Vital signs: Vital Signs Temperature 36.8 C 10/16/24 22:31 Pulse Rate 75 10/16/24 22:31 Respiratory Rate 16 10/16/24 22:31 Blood Pressure 142/84 H 10/16/24 22:31 Pulse Oximetry 100 10/16/24 22:31 Oxygen Delivery Room Air 10/16/24 22:31 Temperature 36.8 C 10/16/24 22:31 Pulse Rate 50 L 10/17/24 01:38 Respiratory Rate 14 10/17/24 00:19 Blood Pressure 126/70 10/17/24 01:38 Pulse Oximetry 97 10/17/24 01:38 Oxygen Delivery Room Air 10/16/24 23:05 MDM - SOB/Dyspnea MDM Narrative Medical decision making narrative: Patient is a 34-year-old male who presents to the ER with a 2 to 3 week history of a dry cough. He reports his lungs feel ?raw. Patient endorses pain ?straight across my chest. He reports he is a previous cigarette smoker but quit. Patient also endorses marijuana use. Approximately 3-4 days ago patient's right side of his throat started hurting and he endorses difficulty swallowing. Patient denies any recent fevers, wheezing, or lower extremity swelling. He endorses a history of a TBI, collapsed lung, multiple fractures, and bronchitis. Labs Ordered: CBC, CMP, D-dimer, PTT, INR, UA, UDS, troponin, magnesium, proBNP, strep swab Imaging Ordered: Chest x-ray Medications Ordered: 1 L normal saline IV bolus, DuoNeb, prednisone p.o. Results: Pt's chest x-ray indicates The cardiomediastinal silhouette is unremarkable. The lungs are clear. Visualized osseous structures and soft tissues are unremarkable. Diagnosis: Bronchitis Risks: HEART score: low risk HEART Score for Major Cardiac Events from [employer] on 10/17/2024 All calculations should be rechecked by clinician prior to use RESULT SUMMARY: 2 points Low Score (0-3 points) Risk of MACE of 0.9-1.7%. INPUTS: History ?> 1 = Moderately suspicious EKG ?> 0 = Normal Age ?> 0 = <45 Risk factors ?> 1 = 1-2 risk factors Initial troponin ?> 0 = <=Normal limit Patient Education/Shared MDM: Results of lab work and imaging shared with patient. He endorses improvement of symptoms following medication administration. Patient strongly advised to maintain hydration status upon discharge and follow-up with his PCP as soon as possible. He will be discharged home with a prescription for an inhaler, steroids, and cough medicine. Strict return precautions provided. Patient verbalized understanding and is in agreement with plan. Vital signs stable at time of discharge. All questions answered. Differential Diagnosis Differential diagnosis: Likely congestive heart failure, community acquired pneumonia, asthma with exacerbation and pulmonary embolism Lab Data Attestation: I reviewed the patient's lab results. 10/16/24 22:46 10/16/24 22:46 Labs: Lab Results 10/16/24 10/16/24 10/16/24 Range/Units 22:46 23:49 23:51 WBC 7.5 (4.5-10.0) K/mm3 RBC 6.00 (4.6-6.20) M/mm3 Hgb 17.4 (14.0-18.0) g/dL Hct 52.7 H (42.0-52.0) % MCV 87.8 (80-100) fl MCH 29.0 (26-34) pg MCHC 33.0 (32-36) g/dl RDW 13.2 (11.5-14.5) % Plt Count 151 (150-375) k/mm3 MPV 10.5 H (7.4-10.4) fl Immature Gran % (Auto) 0.7 H (0-0.5) % Neut % (Auto) 68.4 (45.5-73.1) % Lymph % (Auto) 21.0 (18.3-44.2) % [place] % (Auto) 7.3 (2.6-8.5) % Eos % (Auto) 1.9 (0-4.4) % Baso % (Auto) 0.7 (0.2-1.2) % Lymph # (Auto) 1.58 (0.9-3.2) K/mm3 [place] # (Auto) 0.6 (0.1-0.6) K/mm3 Eos # (Auto) 0.1 (0-0.3) K/mm3 Baso # (Auto) 0.1 (0.0-0.1) K/mm3 Abs Immat Gran (auto) 0.05 H (0.00-0.031) K/mm3 Absolute Neuts (auto) 5.2 (1.3-6.7) K/mm3 Absolute Nucleated RBC 0.000 (0.0-0.012) K/mm3 Band Neutrophils % 0 (0-6) % Nucleated RBC % 0.0 (0.0-0.2) % Platelet Estimate Adequate (Adequate) % Immature Plt Fraction 6.8 (0.9-11.2) % Ovalocytes 1+ Crenated Cell 1+ Schistocytes None seen PT 13.3 (11.1-14.7) Seconds INR 1.0 APTT 24.1 (22.3-36.8) Seconds D-Dimer 0.35 (<0.48) ug/mL Sodium 140 (137-145) mmol/L Potassium 3.7 (3.4-5.0) mmol/L Chloride 106 (98-107) mmol/L Carbon Dioxide 25 (22-30) mmol/L Anion Gap 9 (4-12) mmol/L BUN 11 (9-20) mg/dL Creatinine 0.92 (0.7-1.3) mg/dL Estim Creat Clear Calc 131 ml/min Estimated GFR > 60 (59 - ) Glucose 96 (65-110) mg/dL Calcium 9.4 (8.4-10.2) mg/dL Magnesium 2.2 (1.6-2.3) mg/dL Total Bilirubin 0.8 (0.2-1.3) mg/dL AST 28 (17-59) U/L ALT 38 (6-50) U/L Alkaline Phosphatase 64 (38-126) U/L Troponin I < 0.012 (0.000-0.034) ng/mL NT-Pro-B Natriuret Pep < 20 (19.9-100) pg/mL Total Protein 7.8 (6.3-8.2) g/dL Albumin 4.5 (3.5-5.1) g/dL Group A Strep (PCR) Not detected (Negative) Imaging Data Radiologist's impression: Impressions Chest X-Ray 10/16/24 23:10 IMPRESSION: No focal infiltrate or effusion. Discharge Plan Discharge Clinical Impression: Acute bronchitis, Cough Patient Disposition: Home Condition: Stable Instructions: Antibiotic Form, Acute Bronchitis (ED) Additional Instructions: Please return to the ER with any worsening symptoms. Follow-up with primary care provider as soon as possible. Take all medications as prescribed. Patient Language: Georgian Prescriptions: New albuterol sulfate 90 mcg/actuation aerosol powdr breath activated 2 inh inhalation Q4-6H PRN (Reason: shortness of breath or wheezing) Qty: 1 0RF prednisone 50 mg tablet 50 mg PO DAILY Qty: 5 0RF promethazine-DM 6.25-15 mg/5 mL syrup 5 ml PO Q4-6H PRN (Reason: cough) Qty: 473 0RF No Action aspirin [Adult Aspirin Regimen] 81 mg tablet,delayed release (DR/EC) 81 mg PO DAILY cyclobenzaprine 10 mg tablet 10 mg PO DAILY omeprazole 20 mg Tablet,Delayed Release (Dr/Ec) 20 mg PO DAILY Follow-up/Referrals: Priscila Berry DO [Physician] - (primary care provider) PHYSICIAN,SPINNING DOFFER [Primary Care Provider] - Stand Alone Forms: Work/School Release IP Time of Disposition: 01:49
--- NOTE | 2024-10-16 23:53 | PC.NURSE ---
Iv placed and new lab orders drawn. Patient was asked for urine sample and stated he will wait until after he receives fluids.
[2024-10-17 00:05] LABS: NT Pro B Type Natriuretic Pept < 20 pg/mL (19.9-100); Troponin I < 0.012 ng/mL (0.000-0.034)
[2024-10-17 00:08] LABS: Prothrombin Time 13.3 Seconds (11.1-14.7)
[2024-10-17 00:09] LABS: Partial Thromboplastin Time 24.1 Seconds (22.3-36.8)
[2024-10-17 00:12] LABS: D Dimer 0.35 ug/mL (<0.48)
[2024-10-17] MEDS: IPRATROPIUM 0.5 MG/ALBUTEROL SULFATE 2.5 MG AMPUL.NEB 3 ML INHALATION (00:17)
[2024-10-17 00:19] VITALS: PULSE 65; RESP 14
[2024-10-17] MEDS: SODIUM CHLORIDE 0.9% IV 1,000 ML 999 ML IV CONT (00:19)
[2024-10-17 00:21] LABS: Strep Group A RT-PCR NOT DETECTED (Negative)
--- NOTE | 2024-10-17 01:23 | PC.NURSE ---
Patient was asked for urine sample again and stated he is unable to provide one at this time. This RN offered to use a straight cath. Pt stated he would rather wait until he can provide one by himself.
[2024-10-17 01:38] VITALS: BP 126/70; PULSE 50; O2SAT 97
[2024-10-17] MEDS: predniSONE 20 MG TABLET 40 MG PO (01:49)
== END 2024-10-17 01:55 | disposition home or self-care (01) ==
PROVIDERS: Emergency Medicine; Emergency Provider Registered Nurse
DX: J20.9 Acute bronchitis, unspecified (principal); E78.5 Hyperlipidemia, unspecified; K21.9 Gastro-esophageal reflux disease without esophagitis; Z87.891 Personal history of nicotine dependence; Z79.82 Long term (current) use of aspirin; Z79.899 Other long term (current) drug therapy
CPT/HCPCS: 36415; 71046; 80053; 83735; 83880; 84484; 85025; 85055; 85380; 85610; 85730; 87651; 93005; 94640; 96360; 99284; J7030; J7512

== ENCOUNTER 2024-10-29 13:19 | Emergency (ER) | payer BC, SELFPAY ==
--- OUTSIDE RECORDS SUMMARY | 2024-10-29 13:22 | XMS_ITS | Clinical Summary ---
Author Organization [facility] Address [address] [place] [address] Care Team Providers Care Radiology Administrator Name Role Phone Subhash Victor MD Unavailable [phone] Miscellaneous, Not In File Unavailable Unava ilable Unknown, Notinfile Primary Care Provider Unavail able Allergies Active Allergy Reactions Criticality Noted Date Comments Corticosteroids (Glucocorticoids) Agitation Low 03/27/2024 Aggressive Venom-Wasp Shortness of breath High 02/24/2024 Medications nitroglycerin (NITROSTAT) 0.[address] 1 tablet (0.4 mg total) under the tongue every 5 (five) minutes as needed for chest pain. 90 tablet [address] (PROTONIX) 40 mg EC tablet Take 1 tablet (40 mg total) by mouth daily 30 tablet 0 Active naproxen (NAPROSYN) 500 mg tablet Take 1 tablet (500 mg total) by mouth 2 (two) times a day as needed for pain Take with food. 30 tablet 4 Active benzonatate (TESSALON) 200 mg capsule Take 1 capsule (200 mg total) by mouth 3 (three) times a day as needed for cough keep tessalon out of reach of children, especially children under the age of 10, due to possible serious risk such as if ingested by children under the age of 10. 30 capsule 5 Active Additional Information Patient not taking.Reported on 07/23/2024 naproxen (NAPROSYN) 500 mg tablet Take 1 tablet (500 mg total) by mouth 2 (two) times a day with meals 30 tablet 5 Active Additional Information Patient not taking.Reported on 07/23/2024 HYDROcodone-boris taminophen (NORCO) 5-325 mg per tabletIndicatio ns:Pain Take 1 tablet by mouth every 6 (six) hours as needed for pain for up to 12 doses 12 tablet 5 Active Additional Information Patient not taking.Reported on 07/23/2024 methocarbamoL (ROBAXIN) 500 mg tablet Take 1 tablet (500 mg total) by mouth 2 (two) times a day 20 tablet 5 Active Active Problems Problem Noted Date Diagnosed Date Contusion of right wrist 11/06/2023 Contusion of dorsum of right hand 11/06/2023 RUQ pain 01/09/2020 Assessment & Plan (01/22/2020 1:14 PM CDT): RUQ pain still there. Reviewed with him all blood work,imaging, and endo findings and discussed functional pain. protonix has relieved all GERD sx. Assessment & Plan (01/09/2020 3:15 AM CDT): For the last 3 weeks that worsens when eating greasy/fatty foods. Concern for symptomatic cholelithiasis. CT of the abdomen showed no obvious abnormalities of the gallbladder. Will order right upper quadrant ultrasound. P.r.n. pain control. Melena 01/09/2020 Assessment & Plan (01/09/2020 3:15 AM CDT): Patient had 1 episode on the morning of presentation. He has been taking NSAIDs for the last 2 weeks regularly. Guaiac was positive. GI has been consulted, will await their evaluation. NPO. COVID -19 screening. PPI b.i.d.. Obesity 01/09/2020 Bradycardia 01/09/2020 Assessment & Plan (01/09/2020 3:16 AM CDT): Patient currently has bradycardia in the 50s. He states he had an episode of chest pain in the ER when his heart rate on the monitor was 40s. He states it was very brief and lasted 10-[address] patient on tele and if patient has another episode will consult Cardiology. Will have a hold parameter for morphine for heart rate less than 60. Epigastric abdominal pain 01/08/2020 Overview (01/09/2020): Added automatically from request for surgery [id number] Gastroesophageal reflux disease 01/08/2020 Overview (01/09/2020): Added automatically from request for surgery [id number] Nausea 01/08/2020 Overview (01/09/2020): Added automatically from request for surgery [id number] Hip strain, left, initial encounter 06/01/2017 Struck by horse 06/01/2017 Acute chest pain Abdominal pain Encounters Date Type Department Care Team Description 10/20/2024 2:04 AM CDT - 10/20/2024 7:59 AM CDT Emergency [facility] Emergency Department [address] [place] [id number] MD Kanumuri, Raghu, MD Chest pain, unspecified type (Primary Dx) Discharge Disposition: Discharge to home or self care from Last 3 Months Surgical History Surgery Date Site/Laterality Comments FRACTURE SURGERY CARDIAC SURGERY Medical History Medical History Date Comments Hx Other Medical chest pain History of multiple allergies Al brielle Hypertension High cholesterol Family History Medical History Relation Name Comments Coronary artery disease Father Walker nary artery disease; Other Mother Alive and well; Relation Name Status Comments Father Mother Alive Social History Tobacco Use Types Packs/Day Years Used Date Smoking Tobacco: Former Cigars Smokeless Tobacco: Former Tobacco Cessation:Counseling Given: Not Answered Alcohol Use Standard Drinks/Week Comments No 0 (1 standard drink = 0.6 oz pur e alcohol) AUDIT-C Answer Date Recorded Q1: How often do you have a drink containing alcohol? Never 02/24/2024 Q2: How many drinks containi ng alcohol do you have on a typical day when you are drinking? Patient does not drink Q3: How often do you have si x or more drinks on one occasion? Never 02/24/2024 PHQ-2 Answer Date Recorded PHQ-2 Total Score (If total score is 3 or more points, staff should administer the PHQ-9) 0 01/09/2020 Personal Safety Answer Date Recorded Have you ever been in or are you currently in a harmful physical or emotional relationship or is someone making you feel afraid or unsafe? Denies 10/19/2024 Sex and Gender Information Value Date Recorded Sex Assigned at Not on file Legal Sex Male 11:48 PM [employer] Gender Identity Not on file Sexual Orientation Not on file Obstetrics History Last Filed Vital Signs Vital Sign Reading Time Taken Comments Blood Pressure 125/86 10/20/2024 7:58 AM CDT Pulse 56 10/20/2024 7:58 AM CDT Temperature 36.7 C (98.1 F) 10/20/2024 1:28 AM CDT Respiratory Rate 17 10/20/2024 7:58 AM CDT Oxygen Saturation 97% 10/20/2024 7:58 AM CDT Inhaled Oxygen Concentration - - Weight 114 kg (251 lb 5.2 oz) 10/19/2024 9:37 PM CDT Height 185.4 cm (6' 1) 10/19/2024 9:37 PM CDT Body Mass Index 33.16 10/19/2024 9:37 PM CDT Plan of Treatment Health Maintenance Due Date Last Done Comments Hepatitis C Screening 1991 DTaP/Tdap/Td Vaccine (6 - Tdap) 2002 11/28/1996, 11/13/1992, 04/08/1992, Additional history exists Varicella Vaccines (1 of 2 - 13+ 2-dose series) 01/21/2004 Regular Well Visit/Exam 18-64 2009 Depression Screening 01/07/2021 01/08/2020, 01/08/20 20 Influenza Vaccine (Season Ended) 2024 Hepatitis B Screening Completed 12/15/1998 , 02/21/1998, 11/28/1996 Pneumococcal vaccine <65 Aged Out 01/04/2014 No longer eligible based on patient's age to complete this topic HPV Vaccines Aged Out No longer eligi ble based on patient's age to complete this topic Procedures Procedure Name Priority Date/Time Associated Diagnosis Comments TROPONIN T HIGH-SENSITIVITY 4-HR Timed 10/20/2024 2:20 AM CDT TROPONIN T HIGH-SENSITIVITY 2-HOUR Timed 10/19/2024 11:55 PM CDT XR CHEST PA LATERAL 2 VIEWS ED 10/19/2024 10:26 PM CDT EGFR STAT 10/19/2024 9:44 PM CDT DIFFERENTIAL AUTO STAT 10/19/2024 9:4 4 PM CDT TROPONIN T HIGH-SENSITIVITY SERIES (BASELINE, 2HR, 4HR, 6HR) STAT 10/19/2024 9:44 PM CDT COMPREHENSIVE METABOLIC PANEL STAT 10/19/2024 9:44 PM CDT CBC WITH AUTO DIFFERENTIAL STAT 10/19/2024 9:44 PM CDT ECG 12-LEAD STAT 10/19/2024 9:33 PM CDT from Last 3 Months Results * Troponin T high-sensitivity 4-hour (10/20/2024 2:20 AM CDT) Trop T hs <6 <=22 ng/L Comment: Interpretive Data For further hscTnT resources including the diagnostic algorithm and an aid in interpretation, copy and paste this link: https://nrl.testcatalog.org/show/hsTrop Current Interpretive Data last revised 2020. Trop T hs delta 0 ng/L [facility] ([place]) Trop T hs interp Insignificant [facility] ([place]) Blood 10/20/2024 2:20 AM CDT 10/20/2024 2:23 AM CDT us Subhash Pemberton MD LAB BLOOD ORDERABLES Final Result [facility] ([place]) 1 [facility] Department [place] [address] * Troponin T high-sensitivity 2-hour (10/19/2024 11:55 PM CDT) Trop T hs <6 <=22 ng/L Comment: Interpretive Data For further hscTnT resources including the diagnostic algorithm and an aid in interpretation, copy and paste this link: https://nrl.testcatalog.org/show/hsTrop Current Interpretive Data last revised 2020. Trop T hs delta 0 ng/L [facility] ([place]) Trop T hs interp Insignificant [facility] ([place]) Blood 10/19/2024 11:5 5 PM CDT 10/20/2024 12:12 AM CDT us Subhash Pemberton MD LAB BLOOD ORDERABLES Final Result [facility] ([place]) 1 [facility] Department [place] [address] * XR Chest PA Lateral 2 Views (If patient hemodynamically stable and ambulatory) (10/19/2024 10:26 PMCDT) Anatomical Region Laterality Modality Body, Chest N/A Computed Radiogr aphy 10/19/2024 11:0 3 PM CDT Narrative 10/19/2024 11:03 PM CDT EXAM DESCRIPTION: XR CHEST PA LATERAL 2 VIEWS REASON FOR STUDY: chest pain Left chest pain radiating into back and pt c/o left arm feeling weak. Pt also c/o shortness of breath, nausea and exhaustion since symptoms began 2 hours ago. Pain is intermittent TECHNIQUE: 2 radiographic view(s) of the chest. COMPARISON: None FINDINGS: LUNGS: No focal opacity, pleural effusion, or pneumothorax. HEART/MEDIASTINUM: Cardiac silhouette normal in size. Mediastinal and hilar contours appear normal. LINES/TUBES: None. BONES: No acute osseous abnormality. IMPRESSION: No acute cardiopulmonary abnormality. THIS IS AN ELECTRONICALLY VERIFIED FINAL REPORT 10/19/2024 11:03 PM - Electronically signed by Rubio Mendez M.D. KT: KRISTEL Report ID: [id number] Reading Location: [id number] Procedure Note Rubio Mendez MD - 10/19/2024 EXAM DESCRIPTION: XR CHEST PA LATERAL 2 VIEWS REASON FOR STUDY: chest pain Left chest pain radiating into back and pt c/o left arm feeling weak. Ptalso c/o shortness of breath, nausea and exhaustion since symptoms began 2hours ago. Pain is intermittent TECHNIQUE: 2 radiographic view(s) of the chest. COMPARISON: None FINDINGS: LUNGS: No focal opacity, pleural effusion, or pneumothorax. HEART/MEDIASTINUM: Cardiac silhouette normal in size. Mediastinal andhilar contours appear normal. LINES/TUBES: None. BONES: No acute osseous abnormality. IMPRESSION: No acute cardiopulmonary abnormality. THIS IS AN ELECTRONICALLY VERIFIED FINAL REPORT 10/19/2024 11:03 PM - Electronically signed by Rubio Mendez M.D. KT: KRISTEL Report ID: [id number] Reading Location: [place] [address] Subhash Pemberton MD IMG XR PROCEDURES Final Res ult * Troponin T high-sensitivity series (baseline, 2hr, 4hr, 6hr) (10/19/2024 9:44 PM CDT) Pathologist [facility] Trop T hs <6 <=22 ng/L Comment: Interpretive Data For further hscTnT resources including the diagnostic algorithm and an aid in interpretation, copy and paste this link: https://nrl.testcatalog.org/show/hsTrop Current Interpretive Data last revised 2020. Blood 10/19/2024 9:44 PM CDT 10/19/2024 9:47 PM CDT Subhash Pemberton MD LAB BLOOD ORDERABLES Final Result [facility] [place]) 1 [facility] Department [place] [address] * eGFR (10/19/2024 9:44 PM CDT) Pathologist [facility] eGFR >90 >=60 mL/min/1. 73 m2 Comment: Interpretive Data Reference Interval Normal >/= 90 mL/min/1.73m2 Mildly decreased* 60 - 89 mL/min/1.73m2 Mildly to moderately decreased 45 - 59 mL/min/1.73m2 Moderately to severely decreased 30 - 44 mL/min/1.73m2 Severely decreased 15 - 29 mL/min/1.73m2 Kidney Failure < 15 mL/min/1.73m2 *Relative to young adult level Estimated glomerular filtration rate is determined by the 2020 CKD-EPI equation recommended by the National Kidney Foundation (A Unifying Approach to GFR Estimation: Recommendations of the NKF-ASK Task Force on Reassessing the Inclusion of Race in Diagnosing Kidney Disease, JASN 2020). The CKD-EPI equation should not be used for patients with unstable renal function and has not been validated in children and those over 70. Current interpretive data was last reviewed 2021. Blood 10/19/2024 9:44 PM CDT 10/19/2024 9:47 PM CDT Subhash Pemberton MD LAB BLOOD ORDERABLES Final Result [facility] ([place]) 1 [facility] Department of Laboratories [place], [place] [address] * Differential, auto (10/19/2024 9:44 PM CDT) Neutrophil abs 5.54 1.50 - 6.50 K/cumm Imm gran abs 0.06 0.00 - 0.10 K/cumm [facility] ([place]) Lymphocyte abs 1.64 0.80 - 3.30 K/cumm [facility] ([place]) Monocyte abs 0.68 0.20 - 0.80 K/cumm [facility] ([place]) Eosinophil abs 0.13 0.00 - 0.50 K/cumm [facility] ([place]) Basophil abs 0.04 0.00 - 0.10 K/cumm [facility] ([place]) Neutrophil pct 68.5 % [facility] ([place]) Comment: Interpretive Data Percent cell count reference ranges are not reported, since discordance with absolute values may lead to misinterpretation of CBC data. Current Interpretive Data was last revised on 2017. Imm gran pct 0.7 % [facility] ([place]) Comment: Interpretive Data Percent cell count reference ranges are not reported, since discordance with absolute values may lead to misinterpretation of CBC data. Current Interpretive Data was last revised on 2017. Lymphocyte pct 20.3 % [facility] ([place]) Comment: Interpretive Data Percent cell count reference ranges are not reported, since discordance with absolute values may lead to misinterpretation of CBC data. Current Interpretive Data was last revised on 2017. Monocyte pct 8.4 % [facility] ([place]) Comment: Interpretive Data Percent cell count reference ranges are not reported, since discordance with absolute values may lead to misinterpretation of CBC data. Current Interpretive Data was last revised on 2017. Eosinophil pct 1.6 % [facility] ([place]) Comment: Interpretive Data Percent cell count reference ranges are not reported, since discordance with absolute values may lead to misinterpretation of CBC data. Current Interpretive Data was last revised on 2017. Basophil pct 0.5 % [facility] ([place]) Comment: Interpretive Data Percent cell count reference ranges are not reported, since discordance with absolute values may lead to misinterpretation of CBC data. Current Interpretive Data was last revised on 2017. Blood 10/19/2024 9:44 PM CDT 10/19/2024 9:47 PM CDT Subhash Pemberton MD LAB BLOOD ORDERABLES Final Result [facility] ([place]) 1 [facility] Department [place] [address] * CBC with auto differential (10/19/2024 9:44 PM CDT) WBC 8.09 3.80 - 9.90 K/cumm Hgb 16.1 13.0 - 17.5 g/dL [facility] ([place]) Hct 47.4 38.9 - 50.3 % [facility] ([place]) Plt 209 150 - 400 K/cumm [facility] ([place]) MPV 10.2 9.1 - 12.3 fL [facility] ([place]) RBC 5.47 4.30 - 5.80 M/cumm [facility] ([place]) MCV 86.7 81.3 - 96.4 fL [facility] ([place]) MCH 29.4 27.1 - 33.3 pg [facility] ([place]) MCHC 34.0 32.3 - 35.7 g/dL [facility] ([place]) RDW CV 13.0 11.1 - 14.9 % [facility] ([place]) RDW SD 40.7 35.7 - 48.1 fL [facility] ([place]) NRBC abs 0.00 0.00 - 0.01 K/cumm [facility] ([place]) Blood Venous blood specimen / Unknown 10/19/2024 9:44 PM CDT 10/19/2024 9:47 PM CDT Subhash Pemberton MD LAB BLOOD ORDERABLES Final Result [facility] ([place]) 1 [facility] Department [place] [address] * Comprehensive metabolic panel (10/19/2024 9:44 PM CDT) Sodium 137 135 - 145 mmol/L Potassium, pl 3.9 3.3 - 4.9 mmol/L [facility] ([place]) Chloride 104 97 - 110 mmol/L [facility] ([place]) CO2 22 22 - 32 mmol/L [facility] ([place]) Anion gap 11 2 - 15 mmol/L [facility] ([place]) BUN 8 6 - 25 mg/dL [facility] ([place]) Creatinine 0.91 0.80 - 1.30 mg/dL [facility] ([place] Glucose 99 70 - 199 mg/dL [facility] ([place]) Comment: Interpretive Data Fasting glucose >/= 126 mg/dl is diagnostic for diabetes. Fasting is defined as no caloric intake for at least 8 hours. Fasting glucose between 100 mg/dl to 125 mg/dl is diagnostic of prediabetes. In a patient with classic symptoms of hyperglycemia or hyperglycemic crisis, a random glucose >/= 200 mg/dl is diagnostic for diabetes. In the absence of unequivocal hyperglycemia, results should be confirmed by repeat testing. The classification and Diagnosis of Diabetes Diabetes Care 2021; 46: S19-S40. Current interpretive data was last revised 2022. Calcium 9.2 8.5 - 10.3 mg/dL [facility] ([place]) Bilirubin, total 0.4 0.1 - 1.2 mg/dL [facility] ([place]) Protein, pl 6.8 6.5 - 8.5 g/dL [facility] ([place]) Albumin 4.0 3.5 - 5.0 g/dL [facility] ([place]) Alk phos 85 40 - 130 Units/L [facility] ([place]) ALT 28 7 - 55 Units/L [facility] ([place]) AST 17 10 - 50 Units/L [facility] ([place]) Comment:Slightly Hemolyzed S pecimen Blood 10/19/2024 9:44 PM CDT 10/19/2024 9:47 PM CDT us Subhash Pemberton MD LAB BLOOD ORDERABLES Final Result Performing Organization Address City/[facility] Co de Phone Number [facility] ([place]) 1 [facility] [place] [address] * ECG 12 lead (10/19/2024 9:33 PM CDT) 10/19/2024 9:33 PM CDT Narrative [facility] [employer] - 10/20/2024 5:42 PM CDT Vent Rate: 65 bpm RR Interval: 916 msec [place] Interval: 149 msec QRS Duration: 102 msec QT Interval: 363 msec QTC Interval: 375 msec P-R-T [place]: 38 - 19 - 24 degrees IMPRESSION: SINUS RHYTHM NORMAL ECG Compared to prior EKG, HEART RATE HAS DECREASED. Electronically Signed By: Brando Pena MD Subhash Pemberton MD ECG ORDERABLES Final Resul t Performing Organization Address City/[facility] Co de Phone Number [facility] [employer] [facility] from Last 3 Months Insurance [facility] Member Subscriber Plan / Payer (Ef fective 2019-Present) Name:Harvey Day Relation to Subscriber:Self Name:Harvey Day Payer ID:[id number] (NAIC) Group ID:Not on file Type:MEDICAID RISK OTHER Address: [place] [id number] [facility] BLUE ACCESS [employer]OS [employer] GENERIC Member Subscriber Plan / Payer (Ef fective 2023-Present) Name:Harvey Day Relation to Subscriber:Employee Name:[employer] Address: [address] [place] [address] [place] [address] Payer ID:[id number] Group ID:Not on file Type:WORKERS COMPENSATION Address: [address] [place] [address] [place] [address] Advance Directives For more information, please contact: [phone] * Full Code (Latest Code Status on File) Date Activated Date Inactivated Comments 01/10/2020 9:11 AM 01/10/2020 8:39 PM * Full Code Date Activated Date Inactivated Comments 01/08/2020 10:37 PM 01/10/2020 9:11 AM * Full Code Date Activated Date Inactivated Comments 06/10/2017 2:36 AM 06/10/2017 6:04 PM Care Teams Radiology Administrator Relationship Specialty Start Date End Date Unknown, Notinfile PCP - General 05/25/24 Subhash Victor MD [address] [facility] [place] [address] Consulting Physician Gastroenterology 9/17/20 Miscellaneous, Not In File 01/10/20
--- OUTSIDE RECORDS SUMMARY | 2024-10-29 13:22 | XMS_ITS | Encounter Summary ---
Author Organization [facility] Address [address] [place] [address] Phone Care Team Providers Care Button Tufter Name Role Phone Provider, None Primary Care Provider UnavailArianna Harris APRN, FUR VAULT ATTENDANT Primary Care Provider Encounter Details Date Type Department Care Team (Latest Contact Info) Description 09/23/2021 Transcribe [facility] [address] [place] [address] Arianna Mcgee APRN, FUR VAULT ATTENDANT [address] [place], [place] [id number] Abdominal pain, right upper quadrant (Primary Dx) Social History Tobacco Use Types Packs/Day Years Used Date Smoking Tobacco: Former Smokeless Tobacco: Never Alcohol Use Standard Drinks/Week Comments No 0 (1 standard drink = 0.6 oz pur e alcohol) Sex and Gender Information Value Date Recorded Sex Assigned at Not on file Legal Sex Male 7:41 PM CDT Gender Identity Not on file Sexual Orientation Not on file COVID-19 Exposure Response Date Recorded In the last 10 days, have yo u been in contact with someone who was confirmed or suspected to have Coronavirus/COVID-19? No / Unsure 09/24/2021 7:55 AM CDT documented as of this encounter Plan of Treatment Not on file documented as of this encounter Results * LIPASE (09/24/2021 9:04 AM CDT) LIPASE 25.6 13 - 60 U/L 09/24/2021 9:27 AM CDT [facility] Blood Venipuncture / Unknown 09/24/2021 9:04 AM CDT 09/24/2021 9:06 AM CDT us Crystal L Stone LABORER ORCHARD, FUR VAULT ATTENDANT CHEMISTRY ORDERABLES F inal Result Performing Organization Address City/[facility]/ZIP Co de Phone Number [facility] [address] [place] [address] * AMYLASE (09/24/2021 9:04 AM CDT) Pathologist [facility] AMYLASE 59 28 - 100 U/L 09/24/2021 9:27 AM CDT [facility] Blood Venipuncture / Unknown 09/24/2021 9:04 AM CDT 09/24/2021 9:06 AM CDT us Crystal L Stone LABORER ORCHARD, FUR VAULT ATTENDANT CHEMISTRY ORDERABLES F inal Result Performing Organization Address [facility] Co de Phone Number [facility] [address] [place] [address] * (ABNORMAL) CMP (COMPREHENSIVE METABOLIC PANEL) (09/24/2021 9:04 AM CDT) Pathologist [facility] SODIUM 138 136 - 144 mmol/L 09/24/2021 9:27 AM CDT [facility] POTASSIUM 4.2 3.5 - 5.1 mmol/L 09/24/2021 9:27 AM CDT [facility] CHLORIDE 103 100 - 110 mmol/L 09/24/2021 9:27 AM CDT [facility] CO2, VENOUS 27 22 - 32 mmol/L 09/24/2021 9:27 AM CDT [facility] ANION GAP 12.2 8.0 - 20.0 mmol/L 09/24/2021 9:27 AM T [facility] GLUCOSE 100(H) 70 - 99 mg/dL 09/24/2021 9:27 AM CDT [facility] BUN 12 6 - 20 mg/dL 09/24/2021 9:27 AM T [facility] CREATININE, BLOOD 0.92 0.80 - 1.30 mg/dL 09/24/2021 9:27 AM T [facility] BUN/CREATININE RATIO 13 12 - 20 ratio 09/24/2021 9:27 AM T [facility] TOTAL PROTEIN 7.0 6.0 - 8.3 g/dL 09/24/2021 9:27 AM [facility] ALBUMIN 4.4 3.5 - 5.2 g/dL 09/24/2021 9:27 AM [facility] Comment: The colormetric methods used for the determination of Albumin may lead to falsely elevated test results in patients suffering from renal failure or insufficiency due to interference with other proteins. A/G RATIO 1.7 1.0 - 2.0 09/24/2021 9:27 AM [facility] CALCIUM 9.5 8.9 - 10.3 mg/dL 09/24/2021 9:27 AM [facility] T BILI 0.5 <=1.2 mg/dL 09/24/2021 9:27 AM [facility] SGOT (AST) 20 <=40 U/L 09/24/2021 9:27 AM T [facility] SGPT (ALT) 30 <=41 U/L 09/24/2021 9:27 AM CDT [facility] ALKALINE PHOSPHATASE 105 40 - 130 U/L 09/24/2021 9:27 AM T [facility] GFR, EST. NONAFRICAN >60 >=60 09/24/2021 9:27 AM CDT [facility] GFR, EST. >60 >=60 022 9:27 AM CDT [facility] Comment: Creatinine Clearance is the preferred criteria for selecting drug dose adjustments in renally impaired patients. The GFR is provided as additional pertinent clinical information. GFR is reported in mL/min/1.73 sq m. IS THE PATIENT REQUIRED TO BE FASTING? No 09/24/2021 9:27 AM CDT [facility] Blood Venipuncture / Unknown 09/24/2021 9:04 AM CDT 09/24/2021 9:06 AM CDT us Crystal L Stone LABORER ORCHARD, FUR VAULT ATTENDANT CHEMISTRY ORDERABLES F inal Result [facility] [address] [place] [address] * COMPLETE BLOOD COUNT (CBC) WITHOUT DIFF (09/24/2021 9:04 AM CDT) WBC 5.32 4.00 - 12.00 10(3)/mcL 09/24/2021 9:09 AM CDT [facility] RBC 4.89 4.40 - 5.80 10(6)/mcL 09/24/2021 9:09 AM CDT [facility] HEMOGLOBIN (HGB) 14.2 13.0 - 16.5 g/dL 09/24/2021 9:09 AM CDT [facility] HEMATOCRIT (HCT) 43.3 38.0 - 50.0 % 09/24/2021 9:09 AM CDT [facility] MCV 88.5 82.0 - 96.0 fL 09/24/2021 9:09 AM CDT [facility] MCH 29.0 26.0 - 32.0 pg 09/24/2021 9:09 AM CDT [facility] MCHC 32.8 31.0 - 36.0 g/dL 09/24/2021 9:09 AM CDT [facility] PLATELET COUNT 229 140 - 440 10(3)/mcL 09/24/2021 9:09 AM CDT [facility] RDW 12.4 11.8 - 15.5 % 09/24/2021 9:09 AM CDT [facility] MPV 10.3 8.0 - 12.6 fL 09/24/2021 9:09 AM CDT [facility] Blood Venipuncture / Unknown 09/24/2021 9:04 AM CDT 09/24/2021 9:06 AM CDT us Arianna Mcgee APRN, FUR VAULT ATTENDANT HEMATOLOGY ORDERABLES Final Result [facility] [address] [place] [address] documented in this encounter Visit Diagnoses Diagnosis Abdominal pain, right upper quadrant- Primary documented in this encounter Additional Health Concerns Infection Onset Date Last Indicated Resolved Time COVID - 19 03/12/2022 03/12/2022 03/22/2022 12:1 6 AM 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
--- OUTSIDE RECORDS SUMMARY | 2024-10-29 13:22 | XMS_ITS | Clinical Summary ---
Author Organization [facility] Address [address] [place] [address] Phone Care Team Providers Care Club Attendant Name Role Phone Arianna Mcgee APRN, ANAM Primary Care Provider Allergies No known active allergies Medications Colchicine 0.6 MG Capsule Take one daily for pain, may repeat x1 in 1 hr. No more than 2 a day. 4 Cap 0 6 Active ondansetron (ZOFRAN ODT) 4 MG TABLET DISPERSIBLE Take 1 Tab by mouth every 8 hours as needed for Nausea - 2nd line. 10 Tab 8 Active mupirocin (BACTROBAN) 2 % Ointment Application Site: bilateral nares 1 Tube 9 Active ibuprofen (MOTRIN) 800 MG Tablet Take 1 Tablet by mouth every 8 hours as needed for Moderate or more severe pain. 30 Tablet 2 Active methylPREDNISolo ne (MEDROL DOSPACK) 4 MG Tablet Therapy Pack See product package insert for dosing schedule 21 Tablet 2 Active albuterol 108 (90 Base) MCG/ACT Aerosol Solution take 2 Puffs by inhalation every 6 hours as needed for Cough. 18 g 2 Active amLODIPine (NORVASC) 2.5 MG Tablet Take 2.5 mg by mouth daily. Active atorvastatin (LIPITOR) 40 MG Tablet Take 40 mg by mouth daily. Active pantoprazole (PROTONIX) 40 MG Tablet Delayed Response Take 40 mg by mouth daily. Active HYDROcodone-acet aminophen (NORCO) 5-325 MG TabletIndication s:Dental infection Take 1 Tablet by mouth every 6 hours as needed for Moderate or more severe pain. 12 Tablet Active Family History Medical History Relation Name Comments Coronary Artery Disease Father Diabetes Father Heart Attack Father Hypertension Father Hypertension Mother Other-comment Mother fibromyalgia Relation Name Status Comments Father Mother Alive Social History Tobacco Use Types Packs/Day Years Used Date Smoking Tobacco: Former Cigarettes Q uit: 04/25/2013 Smokeless Tobacco: Current Snuff Tobacco Cessation:Ready to Q uit: Not Asked; Counseling Given: Not Answered Alcohol Use Standard Drinks/Week Comments No 0 (1 standard drink = 0.6 oz pur e alcohol) Sex and Gender Information Value Date Recorded Sex Assigned at Not on file Legal Sex Male 7:41 PM CDT Gender Identity Not on file Sexual Orientation Not on file Last Filed Vital Signs Vital Sign Reading Time Taken Comments Blood Pressure 150/88 11/16/2023 12:11 PM CDT Pulse 77 11/16/2023 12:11 PM CDT Temperature 36.6 C (97.8 F) 11/16/2023 11:04 AM CDT Respiratory Rate 18 11/16/2023 12:11 PM CDT Oxygen Saturation 99% 11/16/2023 12:11 PM CDT Inhaled Oxygen Concentration - - Weight 99.8 kg (220 lb) 11/16/2023 11:04 AM CDT Height 185.4 cm (6' 1) 11/16/2023 11:04 AM CDT Body Mass Index 29.03 11/16/2023 11:04 AM CDT Plan of Treatment Health Maintenance Due Date Last Done Comments Hepatitis C Virus (HCV) Screening 1991 Human Papillomavirus (HPV) Immunization (1 - Male 3-dose series) 2006 SARS-COV-2 Immunization ( - season) 2023 Influenza Immunization (Season Ended) 2024 08/24/2018 Respiratory Syncytial Virus (RSV) Immunization (Adult) (1 - 1-dose 75+ series) 2066 Pneumococcal Immunization Combined Aged Out 01/04/2014 No longer eligible based on patient's age to complete this topic DTaP/Tdap/Td Immunization Discontinued 2018, 11/28/1996, 11/13/1992, Additional history exists Hepatitis B Immunization Completed 019, 12/15/1998, 02/21/1998, Additional history exists Meningococcal Immunization (ACWY) Aged Out 08/24/2018 No longer eligible based on patient's age to complete this topic TdaP Immunization Completed 08/24/2018 Rotavirus Immunization Aged Out No lo nger eligible based on patient's age to complete this topic Insurance MEDICAID [place] Care Teams Club Attendant Relationship Specialty Start Date End Date Arianna Mcgee, LOOM BLOWER, LABORATORY EQUIPMENT CLEANER [facility] [place] [address] PCP - General Family Medicine 09/24/21
--- OUTSIDE RECORDS SUMMARY | 2024-10-29 13:22 | XMS_ITS | Patient Health Record ---
Author Organization [facility] Address [address] [place] [address] Support Name Relationship Address Phone Katherine Felipa Emergency Contact Unknown Harvey Day Guarantor Unknown [phone] Reason For Referral No Information Plan Of Treatment Pending Test Test Name Order Date Urinalysis 11/09/2012
--- OUTSIDE RECORDS SUMMARY | 2024-10-29 13:22 | XMS_ITS | Referral Summary ---
Author Organization [facility] Address [address] [place] [address] Care Team Providers Care Founder And Chief Technical Officer Name Role Phone Subhash Victor MD Unavailable [phone] Miscellaneous, Not In File Unavailable Unava ilable Unknown, Notinfile Primary Care Provider Unavail able Encounters Date Type Department Care Team Description 10/20/2024 2:04 AM CDT - 10/20/2024 7:59 AM CDT Emergency [facility] Emergency Department [address] [place] [address] MD Kanumuri, Raghu, MD Chest pain, unspecified type (Primary Dx) Discharge Disposition: Discharge to home or self care from Last 3 Months Allergies Active Allergy Reactions Criticality Noted Date [...] (01/09/2020): Added automatically from request for surgery [id number] Gastroesophageal reflux disease 01/08/2020 Overview (01/09/2020): Added automatically from request for surgery [id number] Nausea 01/08/2020 Overview (01/09/2020): Added automatically from request for surgery [id number] Hip strain, left, initial encounter 06/01/2017 Struck by horse 06/01/2017 Acute chest pain Abdominal pain Social History Tobacco Use Types Packs/Day Years [...] you are drinking? 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 Trop T hs delta 0 ng/L [facility] ([place]) Trop T hs interp Insignificant [facility] ([place]) Blood 10/20/2024 2:20 AM CDT 10/20/2024 2:23 AM CDT Subhash Pemberton MD LAB BLOOD ORDERABLES Final Result Performing Organization Address City/[facility]/ZIP Co de Phone Number [facility] ([place]) 1 [facility] [place] [address] * Troponin T high-sensitivity 2-hour (10/19/2024 11:55 PM CDT) Trop T hs <6 <=22 ng/L Comment: Interpretive Data For further hscTnT resources including the diagnostic algorithm and an aid in interpretation, copy and paste this link: https://nrl.Memorandom.org/show/hsTrop Current Interpretive Data last revised 2020. Trop T hs delta 0 ng/L [facility] ([place]) Trop T hs interp Insignificant [facility] ([place]) Blood 10/19/2024 11:5 5 PM CDT 10/20/2024 12:12 AM CDT Subhash Pemberton MD LAB BLOOD ORDERABLES Final Result [facility] 1 [facility] [place] [address] * XR Chest PA Lateral 2 Views [...] Rubio Mendez M.D. KT: KRISTEL Report ID: [id number] Reading Location: [id number] Procedure Note Rubio Mendez MD - 10/19/2024 [...] Rubio Mendez M.D. KT: KRISTEL Report ID: [id number] Reading Location: [id number] Subhash Pemberton MD IMG XR PROCEDURES Final Res ult * Troponin T high-sensitivity series (baseline, 2hr, 4hr, 6hr) (10/19/2024 9:44 PM CDT) Trop T hs <6 <=22 ng/L Comment: Interpretive Data For further hscTnT resources including the diagnostic algorithm and an aid in interpretation, copy and paste this link: https://nrl.testcatalog.org/show/hsTrop Current Interpretive Data last revised 2020. Blood 10/19/2024 9:44 PM CDT 10/19/2024 9:47 PM CDT us Subhash Pemberton MD LAB BLOOD ORDERABLES Final Result [facility] [place]) 1 [facility] [place] [address] * eGFR (10/19/2024 9:44 PM CDT) Pathologist [facility] eGFR >90 >=60 mL/min/1. 73 [...] LAB BLOOD ORDERABLES Final Result [facility] ([place]) 1 [facility] [place] [address] * Differential, auto (10/19/2024 9:44 PM CDT) [...] ORDERABLES Final Result [facility] ([place]) 1 [facility] [place] [address] * CBC with auto differential (10/19/2024 9:44 PM CDT) WBC 8.09 3.80 - 9.90 K/cumm Hgb 16.1 13.0 - 17.5 g/dL [facility] ([place]) Hct 47.4 38.9 - 50.3 % [facility]) Plt 209 150 - 400 K/cumm [facility] ([place]) MPV 10.2 9.1 - 12.3 fL [facility] ([place]) RBC 5.47 4.30 - 5.80 M/cumm [facility] ([place]) MCV 86.7 81.3 - 96.4 fL [facility] ([place]) MCH 29.4 27.1 - 33.3 pg [facility] MCHC 34.0 32.3 - 35.7 g/dL [facility] ([place]) RDW CV 13.0 11.1 - 14.9 % [facility] RDW SD 40.7 35.7 - 48.1 fL [facility]) NRBC abs 0.00 0.00 - 0.01 K/cumm [facility] ([place]) Blood Venous blood specimen / Unknown 10/19/2024 9:44 PM CDT 10/19/2024 9:47 PM CDT Subhash Pemberton MD LAB BLOOD ORDERABLES Final Result [facility] 1 [facility] [place] [address] * Comprehensive metabolic panel (10/19/2024 9:44 PM CDT) Sodium 137 135 - 145 mmol/L Potassium, pl 3.9 3.3 - 4.9 mmol/L [facility] Chloride 104 97 - 110 mmol/L [facility] CO2 22 22 - 32 mmol/L [facility]) Anion gap 11 2 - 15 mmol/L [facility] BUN 8 6 - 25 mg/dL [facility]) Creatinine 0.91 0.80 - 1.30 mg/dL [facility]) Glucose 99 70 - 199 mg/dL [facility] ([place]) Comment: Interpretive Data Fasting glucose [...] LAB BLOOD ORDERABLES Final Result [facility] ([place]) 1 [facility] [place] [address] * ECG 12 lead (10/19/2024 9:33 PM CDT) 10/19/2024 9:33 PM CDT Narrative [facility] - 10/20/2024 5:42 PM CDT Vent Rate: 65 bpm RR Interval: 916 msec W[place] Interval: 149 msec QRS Duration: 102 msec QT Interval: 363 msec QTC Interval: 375 msec P-R-T [place]: 38 - 19 - 24 degrees IMPRESSION: SINUS RHYTHM NORMAL ECG Compared to prior EKG, HEART RATE HAS DECREASED. Electronically Signed By: Brando Pena MD Subhash Pemberton MD ECG ORDERABLES Final Resul t [facility] from Last 3 Months Insurance [facility] [employer] WORK[employer] COMPENSATION GENERIC Member Subscriber Plan / Payer (Ef fective 2023-Present) Name:Harvey Day Relation to Subscriber:Employee Name:[email or web address] Address: [address] [place] [address] Payer ID:[id number] Group ID:Not on file Type:WORKERS COMPENSATION Address: [address] [place] [address] Advance Directives For more information, please contact: [phone] * Full Code (Latest Code Status on File) Date Activated Date Inactivated Comments 01/10/2020 9:11 AM 01/10/2020 8:39 PM * Full Code Date Activated Date Inactivated Comments 01/08/2020 10:37 PM 01/10/2020 9:11 AM * Full Code Date Activated Date Inactivated Comments 06/10/2017 2:36 AM 06/10/2017 6:04 PM Care Teams Founder And Chief Technical Officer Relationship Specialty Start Date End Date Unknown, Notinfile PCP - General 05/25/24 Subhash Victor MD [address] [place] [address] Consulting Physician Gastroenterology 01/10/20 Miscellaneous, Not In File 01/10/20
--- OUTSIDE RECORDS SUMMARY | 2024-10-29 13:23 | XMS_ITS | Data Portability ---
Author Organization [facility], [employer] Address [address] [place] [address] Assessment Encounter Date Assessment Date Assessment LastModified by Organization Details LastModified Time 03/24/2022 03/24/2022 Medication Changes Mucinex-D as directed BID Amlodipine 2.5 mg q HS labs obtained at visit to eval levels. Signs and symptoms of when to seek further care reviewed with patient. Patient to follow up with primary care provider or return to clinic for any worsening signs and symptoms. Always present to ER or Urgent Care with any progression of/alarming symptoms, significant changes in symptoms or any concerning or urgent matters. Patient verbalized agreement and understanding of treatment plan. F/U 12 weeks, sooner if needed [email or web address] Not available 03/24/2022 11:20:19 06/01/2022 06/01/2022 Medication Changes Continue to lose weight, incorporate exercise. Signs and symptoms of when to seek further care reviewed with patient/caregive r/family/facilit y staff. Patient to follow up with primary care provider or return to clinic for any worsening signs and symptoms. Always present to ER or Urgent Care with any progression of/alarming symptoms, significant changes in symptoms or any concerning or urgent matters. Patient/caregive r/family/facilit y staff verbalized agreement and understanding of treatment plan. F/U 12 weeks, sooner if needed My total encounter time was 30 minutes which was spent in the activities documented in the note. This includes time spent prior to the visit, performing a medically appropriate examination with evaluation, and after the visit in direct care of the patient (history and exam; ordering prescriptions/la bs/imaging/home health/therapy/s pecialists; communicating results to patient and/or other relative individuals; counseling/educa ting patient; documenting clinical information in patient s chart; coordination of care for the patient). This time does not include time spent in any separately reportable services. Not available 06/01/2022 11:22:15 09/06/2022 09/06/2022 Medication Changes labs to eval levels Signs and symptoms of when to seek further care reviewed with patient/caregive r/family/facilit y staff. Patient to follow up with primary care provider or return to clinic for any worsening signs and symptoms. Always present to ER or Urgent Care with any progression of/alarming symptoms, significant changes in symptoms or any concerning or urgent matters. Patient/caregive r/family/facilit y staff verbalized agreement and understanding of treatment plan. F/U 6 months, sooner if needed My total encounter time was 30 minutes which was spent in the activities documented in the note. This includes time spent prior to the visit, performing a medically appropriate examination with evaluation, and after the visit in direct care of the patient (history and exam; ordering prescriptions/la bs/imaging/home health/therapy/s pecialists; communicating results to patient and/or other relative individuals; counseling/educa ting patient; documenting clinical information in patient s chart; coordination of care for the patient). This time does not include time spent in any separately reportable services. [email or web address] Not available 09/06/2022 11:06:22 03/31/2023 03/31/2023 Medication Changes labs to eval levels Signs and symptoms of when to seek further care reviewed with patient/caregive r/family/facilit y staff. Patient to follow up with primary care provider or return to clinic for any worsening signs and symptoms. Always present to ER or Urgent Care with any progression of/alarming symptoms, significant changes in symptoms or any concerning or urgent matters. Patient/caregive r/family/facilit y staff verbalized agreement and understanding of treatment plan. F/U 6 months, sooner if needed My total encounter time was 30 minutes which was spent in the activities documented in the note. This includes time spent prior to the visit, performing a medically appropriate examination with evaluation, and after the visit in direct care of the patient (history and exam; ordering prescriptions/la bs/imaging/home health/therapy/s pecialists; communicating results to patient and/or other relative individuals; counseling/educa ting patient; documenting clinical information in patient s chart; coordination of care for the patient). This time does not include time spent in any separately reportable services. [email or web address] Not available 03/31/2023 11:46:34 10/03/2023 10/03/2023 Medication Changes labs to eval levels Refer to neurology for concussion f/u for whomever takes his insurance Signs and symptoms of when to seek further care reviewed with patient/caregive r/family/facilit y staff. Patient to follow up with primary care provider or return to clinic for any worsening signs and symptoms. Always present to ER or Urgent Care with any progression of/alarming symptoms, significant changes in symptoms or any concerning or urgent matters. Patient/caregive r/family/facilit y staff verbalized agreement and understanding of treatment plan. F/U 6 months, sooner if needed My total encounter time was 30 minutes which was spent in the activities documented in the note. This includes time spent prior to the visit, performing a medically appropriate examination with evaluation, and after the visit in direct care of the patient (history and exam; ordering prescriptions/la bs/imaging/home health/therapy/s pecialists; communicating results to patient and/or other relative individuals; counseling/educa ting patient; documenting clinical information in patient s chart; coordination of care for the patient). This time does not include time spent in any separately reportable services. [email or web address] Not available 10/03/2023 16:45:11 Plan of Treatment Reminders Order Date Submit Date Provider Last Modified By Organization Details Last Modified Time Details Appointments None recorded. Lab lipid panel, serum 2023 024 [facility], [address] [place], [address], 4 09:02:47 CMP, serum or plasma 2023 024 [facility], [address] [place], [address], 4 09:02:49 magnesium, serum or plasma 2023 024 [facility], [address] [place], [address], 4 09:02:48 CBC 2023 024 PAUL [facility] [place] [facility], [address], [address], 4 08:26:38 lipid panel, serum 2022 023 [email or web address] [facility] [place] [facility], [address] [place], [address], 3 08:56:12 CMP, serum or plasma 2022 023 [facility] [place] [facility], [place], [address], 3 08:56:14 magnesium, serum or plasma 2022 023 [facility] [place] [facility], [address] [place], [address], 3 08:56:14 CBC 2022 023 [email or web address] [facility] [place] [facility], [address], [address], 3 08:56:15 testosteron e, free + total, serum 2022 023 [email or web address] [facility] [place] [facility], [address] [place], [address], 3 09:45:12 lipid panel, serum 2022 023 [email or web address] [facility] [place] [facility], [address], [address], 3 08:22:55 CMP, serum or plasma 2022 023 [email or web address] [facility] [place] [facility], [address] [place], [address], 3 08:22:56 magnesium, serum or plasma 2022 023 [facility] [place] [facility], [address] [place], [address], 3 08:22:56 CBC 2022 023 PAUL [facility] [place] [facility], [address] [address] [place], [address], 3 08:16:08 lipid panel, serum 2021 022 PAUL [facility] [place] [facility], [address] [address] [place], [address], 2 11:19:40 CMP, serum or plasma 2021 022 PAUL [facility] [place] [facility], [address] [address] [facility] [place], [address], 2 11:19:42 magnesium, serum or plasma 2021 022 PAUL [facility] [place] [facility], [address] [address] [place], [address], 2 11:19:41 CBC 2021 022 PAUL [facility] [place] [facility], [address] [address] [place], [address], 2 11:19:43 Referral neurologist referral 2023 024 [email or web address] Griffith MD, [address], [address], 4 08:48:31 Procedures None recorded. Surgeries None recorded. Imaging None recorded. Medication Orders atorvastati n 40 mg tablet 2023 024 [place] [facility]39943, [address], [place], [id number], 4 16:44:19 pantoprazol e 40 mg tablet,shalini yed release 2023 024 [place] [facility] [facility]72239, [address], [place], [id number], 4 16:44:21 amlodipine 2.5 mg tablet 2023 024 [facility] #38473, [address], [place], [id number], 4 16:44:20 atorvastati n 40 mg tablet 2022 023 [facility] #59502, [address], [place], [id number], 3 11:42:34 pantoprazol e 40 mg tablet,shalini yed release 2022 023 [place] [facility] #47041, [address], [place], [place], [id number], 3 11:41:25 amlodipine 2.5 mg tablet 2022 023 [facility] #68012, [address], [place], [place], [id number], 3 11:42:39 atorvastati n 40 mg tablet 2022 023 [place] #07227, [address], [id number], 3 10:31:17 pantoprazol e 40 mg tablet,shalini yed release 2022 023 [address] [facility], [address], [place], [place], [id number], 10:34:48 amlodipine 2.5 mg tablet 2022 023 [facility], [address], [place], [place], [id number], 10:31:51 amlodipine 2.5 mg tablet 2022 023 [address] [facility], [address], [place], [place], [id number], 11:21:26 pseudoephed rine-guaife nesin ER 120 mg-1,200 mg tab,extend release 12hr 2021 023 [facility], [address], [place], [place], [id number], 3 10:14:05 fluoxetine 40 mg capsule 2021 022 [address] [facility], [address], [place], [place], [id number], 3 10:25:18 amlodipine 2.5 mg tablet 2021 [address]22 [place] [facility], [address], [place], [place], [id number], 11:21:33 pantoprazol e 40 mg tablet,shalini yed release 2021 022 [facility], [address], [place], [place], [id number], 11:21:34 prazosin 1 mg capsule 2021 022 [facility]144, [address], [place], [place], [id number], 3 10:14:40 Patient TargetsNo targets recorded. Patient Instructions Encounter Date Encounter Id Patient Instructions Last Modified By Organization Details Last Modified Time 09/06/2022 [id number] weight managemen t education [email or web address] Not available 09/06/2022 10:31:10 Reason for Referral Neurologist Referral for Con cussion with loss of consciousness Referring Physician: Arianna Mcgee, Internal Medicine, Encounter Date: 10/03/2023 Results Created Date Observation Date Name Description Value Unit Range Abnormal Flag Note LastModifiedBy Organization Detail LastModifiedTime 03/24/20 22 03/25/2022 LIPID PANEL , STAND YASSINE cholesterol, total 199 mg/dL <200 normal Not Available [facility] [address] [place], [address], 03/25/2022 14:50:42 03/24/20 22 03/25/2022 LIPID PANEL , STAND YASSINE HDL cholesterol 33 mg/dL > or = 40 low Not Available [facility] [address] [place], [address], 03/25/2022 14:50:42 03/24/20 22 03/25/2022 LIPID PANEL , STAND YASSINE triglyceride s 269 mg/dL <150 high If a non-f astin g speci men was colle cted, consi zachary repea t trigl yceri de testi ng on a fasti ng speci men if clini paloma indic ated. Ollie mccullough et al. J. of Clin. Lipid ol. 2015; 9:129 -169. Not Available [facility] [address] [place], [address], 03/25/2022 14:50:42 03/24/20 22 03/25/2022 LIPID PANEL , STAND YASSINE LDL-choleste rol 125 mg/dL _(january c) high Refer ence range : <100 Yon able range <100 mg/dL for prima ry preve ntion ; <70 mg/dL for patie nts with CHD or diabe tic patie nts with > or = 2 CHD risk facto rs. LDL-C is now calcu lated using the Bradnee n-Hop kins calcu alyson n, which is a valid ated novel metho d provi ding blanca r accur acy than the Fried rajinder equat ion in the estim ation of LDL-C . Brandee lieberman SS et al. EDNA. 2013; 310(1 9): 2061- 2068 (http ://ed ucati on.Gutenbergz. Reds10/f aq/FA Q164) Not Available [facility] [address], [address], 03/25/2022 14:50:42 03/24/20 22 03/25/2022 LIPID PANEL , STAND YASSINE chol/HDLC ratio 6.0 (calc ) <5.0 high Not Available [facility] [address], [address], 03/25/2022 14:50:42 03/24/20 22 03/25/2022 LIPID PANEL , STAND YASSINE non HDL cholesterol 166 mg/dL _(january c) <130 high For patie nts with diabe amado plus 1 major ASCVD risk facto r, treat ing to a non-H DL-C goal of <100 mg/dL (LDL- C of <70 mg/dL ) is consi elizabethd a thera peuti c optio n. Not Available [facility] [address], [address], 03/25/2022 14:50:42 03/24/20 22 03/25/2022 [facility] magnesium 2.2 mg/dL 1.5-2. 5 normal Not Available [facility] [address], [address], 03/25/2022 14:50:43 03/24/20 22 03/25/2022 COMPR EHENS INES METAB OLIC PANEL glucose 90 mg/dL 65-99 normal Fasti ng refer ence inter jake Not Available [address] [place], [address], 03/25/2022 14:50:44 03/24/20 22 03/25/2022 COMPR EHENS INES METAB OLIC PANEL urea nitrogen (BUN) 16 mg/dL 7-25 normal Not Available [address], [address], 03/25/2022 14:50:44 03/24/20 22 03/25/2022 COMPR EHENS INES METAB OLIC PANEL creatinine 0.84 mg/dL 0.60-1 .26 normal Not Available [address], [address], 03/25/2022 14:50:44 03/24/20 22 03/25/2022 COMPR EHENS INES METAB OLIC PANEL eGFR 120 mL/mi n/1.7 3m2 > or = 60 normal The eGFR is based on the CKD-E PI 2020 equat ion. To calcu late the new eGFR from a previ ous Creat inine or Cysta tin C resul t, go to https ://carlos cameron.selina montoya/idllon reese s/ kdoqi /gfr% 5Fcal culat or Not Available [place] [address] [place], [address], 03/25/2022 14:50:44 03/24/20 22 03/25/2022 COMPR EHENS INES METAB OLIC PANEL BUN/creatini ne ratio NOT APPLIC ABLE (calc ) 6-22 Not Available [place] [address] [place], [address], 03/25/2022 14:50:44 03/24/20 22 03/25/2022 COMPR EHENS INES METAB OLIC PANEL sodium 140 mmol/ L 135-14 6 normal Not Available [address], [address], 03/25/2022 14:50:44 03/24/20 22 03/25/2022 COMPR EHENS INES METAB OLIC PANEL potassium 4.3 mmol/ L 3.5-5. 3 normal Not Available [address], [address], 03/25/2022 14:50:44 03/24/20 22 03/25/2022 COMPR EHENS INES METAB OLIC PANEL chloride 104 mmol/ L 98-110 normal Not Available [address], [address], 03/25/2022 14:50:44 03/24/20 22 03/25/2022 COMPR EHENS INES METAB OLIC PANEL carbon dioxide 30 mmol/ L 20-32 normal Not Available [address], [address], 03/25/2022 14:50:44 03/24/20 22 03/25/2022 COMPR EHENS INES METAB OLIC PANEL calcium 9.4 mg/dL 8.6-10 .3 normal Not Available [address], [address], 03/25/2022 14:50:44 03/24/20 22 03/25/2022 COMPR EHENS INES METAB OLIC PANEL protein, total 6.8 g/dL 6.1-8. 1 normal Not Available [address], [address], 03/25/2022 14:50:44 03/24/20 22 03/25/2022 COMPR EHENS INES METAB OLIC PANEL albumin 4.4 g/dL 3.6-5. 1 normal Not Available [address], [address], 03/25/2022 14:50:44 03/24/20 22 03/25/2022 COMPR EHENS INES METAB OLIC PANEL globulin 2.4 g/dL_ (calc ) 1.9-3. 7 normal Not Available [address], [address], 03/25/2022 14:50:44 03/24/20 22 03/25/2022 COMPR EHENS INES METAB OLIC PANEL albumin/glob ulin ratio 1.8 (calc ) 1.0-2. 5 normal Not Available [address], [address], 03/25/2022 14:50:44 03/24/20 22 03/25/2022 COMPR EHENS INES METAB OLIC PANEL bilirubin, total 0.7 mg/dL 0.2-1. 2 normal Not Available [address], [address], 03/25/2022 14:50:44 03/24/20 22 03/25/2022 COMPR EHENS INES METAB OLIC PANEL alkaline phosphatase 94 U/L 36-130 normal Not Available [address], [address], 03/25/2022 14:50:44 03/24/20 22 03/25/2022 COMPR EHENS INES METAB OLIC PANEL AST 21 U/L 10-40 normal Not Available [address], [address], 03/25/2022 14:50:44 03/24/20 22 03/25/2022 COMPR EHENS INES METAB OLIC PANEL ALT 31 U/L 9-46 normal Not Available [address], [address], 03/25/2022 14:50:44 03/24/20 22 03/25/2022 CBC (H/H, RBC, INDIC ES, WBC, PLT) white blood cell count 6.7 thous and/u L 3.8-10 .8 normal Not Available [address], [address], 03/25/2022 11:19:43 03/24/20 22 03/25/2022 CBC (H/H, RBC, INDIC ES, WBC, PLT) red blood cell count 4.96 kit on/uL 4.20-5 .80 normal Not Available [address], [address], 03/25/2022 11:19:43 03/24/20 22 03/25/2022 CBC (H/H, RBC, INDIC ES, WBC, PLT) hemoglobin 14.3 g/dL 13.2-1 7.1 normal Not Available [address], [address], 03/25/2022 11:19:43 03/24/20 22 03/25/2022 CBC (H/H, RBC, INDIC ES, WBC, PLT) hematocrit 42.2 % 38.5-5 0.0 normal Not Available [address], [address], 03/25/2022 11:19:43 03/24/20 22 03/25/2022 CBC (H/H, RBC, INDIC ES, WBC, PLT) MCV 85.1 fL 80.0-1 00.0 normal Not Available [address], [address], 03/25/2022 11:19:43 03/24/20 22 03/25/2022 CBC (H/H, RBC, INDIC ES, WBC, PLT) MCH 28.8 pg 27.0-3 3.0 normal Not Available [address], [address], 03/25/2022 11:19:43 03/24/20 22 03/25/2022 CBC (H/H, RBC, INDIC ES, WBC, PLT) MCHC 33.9 g/dL 32.0-3 6.0 normal Not Available [address], [address], 03/25/2022 11:19:43 03/24/20 22 03/25/2022 CBC (H/H, RBC, INDIC ES, WBC, PLT) RDW 13.6 % 11.0-1 5.0 normal Not Available [address], [address], 03/25/2022 11:19:43 03/24/20 22 03/25/2022 CBC (H/H, RBC, INDIC ES, WBC, PLT) platelet count 320 thous and/u L 140-40 0 normal Not Available [address], [address], 03/25/2022 11:19:43 03/24/20 22 03/25/2022 CBC (H/H, RBC, INDIC ES, WBC, PLT) MPV 11.9 fL 7.5-12 .5 normal Not Available [facility] [address], [address], 03/25/2022 11:19:43 09/07/19 23 09/07/2022 CBC (H/H, RBC, INDIC ES, WBC, PLT) white blood cell count 5.1 thous and/u L 3.8-10 .8 normal Not Available [facility] [address], [address], 09/07/2022 08:16:08 09/07/1909/07/2022 CBC (H/H, RBC, INDIC ES, WBC, PLT) red blood cell count 5.24 kit on/uL 4.20-5 .80 normal Not Available [facility] [address], [address], 09/07/2022 08:16:08 09/07/1909/07/2022 CBC (H/H, RBC, INDIC ES, WBC, PLT) hemoglobin 14.6 g/dL 13.2-1 7.1 normal Not Available [address], [address], 09/07/2022 08:16:08 09/07/1909/07/2022 CBC (H/H, RBC, INDIC ES, WBC, PLT) hematocrit 44.9 % 38.5-5 0.0 normal Not Available [address], [address], 09/07/2022 08:16:08 09/07/1909/07/2022 CBC (H/H, RBC, INDIC ES, WBC, PLT) MCV 85.7 fL 80.0-1 00.0 normal Not Available [address], [address], 09/07/2022 08:16:08 09/07/1909/07/2022 CBC (H/H, RBC, INDIC ES, WBC, PLT) MCH 27.9 pg 27.0-3 3.0 normal Not Available [address], [address], 09/07/2022 08:16:08 09/07/1909/07/2022 CBC (H/H, RBC, INDIC ES, WBC, PLT) MCHC 32.5 g/dL 32.0-3 6.0 normal Not Available [address], [address], 09/07/2022 08:16:08 09/07/1909/07/2022 CBC (H/H, RBC, INDIC ES, WBC, PLT) RDW 13.5 % 11.0-1 5.0 normal Not Available [address], [address], 09/07/2022 08:16:08 09/07/19 23 09/07/2022 CBC (H/H, RBC, INDIC ES, WBC, PLT) platelet count 242 thous and/u L 140-40 0 normal Not Available [address], [address], 09/07/2022 08:16:08 09/07/1909/07/2022 CBC (H/H, RBC, INDIC ES, WBC, PLT) MPV 11.4 fL 7.5-12 .5 normal Not Available [address], [address], 09/07/2022 08:16:08 09/07/1909/07/2022 [facility] magnesium 2.1 mg/dL 1.5-2. 5 normal Not Available [address], [address], 09/07/2022 10:22:23 09/07/19 23 09/07/2022 COMPR EHENS INES METAB OLIC PANEL glucose 103 mg/dL 65-99 high Fasti ng refer ence inter jake For someo ne witho ut known diabe amado, a gluco se value betwe en 100 and 125 mg/dL is consi stent with predi abete s and shoul d be confi rmed with a follo w-up test. Not Available [address], [address], 09/07/2022 10:22:24 09/07/19 23 09/07/2022 COMPR EHENS INES METAB OLIC PANEL urea nitrogen (BUN) 13 mg/dL 7-25 normal Not Available [address], [address], 09/07/2022 10:22:24 09/07/19 23 09/07/2022 COMPR EHENS INES METAB OLIC PANEL creatinine 1.00 mg/dL 0.60-1 .26 normal Not Available [address], [address], 09/07/2022 10:22:24 09/07/19 23 09/07/2022 COMPR EHENS INES METAB OLIC PANEL eGFR 103 mL/mi n/1.7 3m2 > or = 60 normal The eGFR is based on the CKD-E PI 2020 equat ion. To calcu late the new eGFR from a previ ous Creat inine or Cysta tin C resul t, go to https ://carlos w.skyler cameron.o jan/pr ofess ional s/ kdoqi /gfr% 5Fcal culat or Not Available [address], [address], 09/07/2022 10:22:24 09/07/19 23 09/07/2022 COMPR EHENS INES METAB OLIC PANEL BUN/creatini ne ratio NOT APPLIC ABLE (calc ) 6-22 Not Available [address], [address], 09/07/2022 10:22:24 09/07/19 23 09/07/2022 COMPR EHENS INES METAB OLIC PANEL sodium 141 mmol/ L 135-14 6 normal Not Available [address], [address], 09/07/2022 10:22:24 09/07/19 23 09/07/2022 COMPR EHENS INES METAB OLIC PANEL potassium 4.0 mmol/ L 3.5-5. 3 normal Not Available [facility] [address], [address], 09/07/2022 10:22:24 09/07/19 23 09/07/2022 COMPR EHENS INES METAB OLIC PANEL chloride 104 mmol/ L 98-110 normal Not Available [address], [address], 09/07/2022 10:22:24 09/07/19 23 09/07/2022 COMPR EHENS INES METAB OLIC PANEL carbon dioxide 28 mmol/ L 20-32 normal Not Available [address], [address], 09/07/2022 10:22:24 09/07/19 23 09/07/2022 COMPR EHENS INES METAB OLIC PANEL calcium 9.9 mg/dL 8.6-10 .3 normal Not Available [address], [address], 09/07/2022 10:22:24 09/07/19 23 09/07/2022 COMPR EHENS INES METAB OLIC PANEL protein, total 7.2 g/dL 6.1-8. 1 normal Not Available [address], [address], 09/07/2022 10:22:24 09/07/19 23 09/07/2022 COMPR EHENS INES METAB OLIC PANEL albumin 4.4 g/dL 3.6-5. 1 normal Not Available [address], [address], 09/07/2022 10:22:24 09/07/19 23 09/07/2022 COMPR EHENS INES METAB OLIC PANEL globulin 2.8 g/dL_ (calc ) 1.9-3. 7 normal Not Available [address], [address], 09/07/2022 10:22:24 09/07/19 23 09/07/2022 COMPR EHENS INES METAB OLIC PANEL albumin/glob ulin ratio 1.6 (calc ) 1.0-2. 5 normal Not Available [address], [address], 09/07/2022 10:22:24 09/07/19 23 09/07/2022 COMPR EHENS INES METAB OLIC PANEL bilirubin, total 1.1 mg/dL 0.2-1. 2 normal Not Available [address], [address], 09/07/2022 10:22:24 09/07/19 23 09/07/2022 COMPR EHENS INES METAB OLIC PANEL alkaline phosphatase 89 U/L 36-130 normal Not Available [address], [address], 09/07/2022 10:22:24 09/07/19 23 09/07/2022 COMPR EHENS INES METAB OLIC PANEL AST 18 U/L 10-40 normal Not Available [address], [address], 09/07/2022 10:22:24 09/07/19 23 09/07/2022 COMPR EHENS INES METAB OLIC PANEL ALT 27 U/L 9-46 normal Not Available [address], [address], 09/07/2022 10:22:24 03/31/20 23 04/01/2023 [facility] magnesium 2.2 mg/dL 1.5-2. 5 normal Not Available [address], [address], 04/01/2023 09:42:48 03/31/20 23 04/01/2023 CBC (H/H, RBC, INDIC ES, WBC, PLT) white blood cell count 9.9 thous and/u L 3.8-10 .8 normal Not Available [address], [address], 04/01/2023 09:42:51 03/31/20 23 04/01/2023 CBC (H/H, RBC, INDIC ES, WBC, PLT) red blood cell count 5.21 kit on/uL 4.20-5 .80 normal Not Available [address], [address], 04/01/2023 09:42:51 03/31/20 23 04/01/2023 CBC (H/H, RBC, INDIC ES, WBC, PLT) hemoglobin 15.5 g/dL 13.2-1 7.1 normal Not Available [address], [address], 04/01/2023 09:42:51 03/31/20 23 04/01/2023 CBC (H/H, RBC, INDIC ES, WBC, PLT) hematocrit 45.3 % 38.5-5 0.0 normal Not Available [address], [address], 04/01/2023 09:42:51 03/31/20 23 04/01/2023 CBC (H/H, RBC, INDIC ES, WBC, PLT) MCV 86.9 fL 80.0-1 00.0 normal Not Available [address], [address], 04/01/2023 09:42:51 03/31/20 23 04/01/2023 CBC (H/H, RBC, INDIC ES, WBC, PLT) MCH 29.8 pg 27.0-3 3.0 normal Not Available [address], [address], 04/01/2023 09:42:51 03/31/2004/01/2023 CBC (H/H, RBC, INDIC ES, WBC, PLT) MCHC 34.2 g/dL 32.0-3 6.0 normal Not Available [address], [address], 04/01/2023 09:42:51 03/31/20 23 04/01/2023 CBC (H/H, RBC, INDIC ES, WBC, PLT) RDW 13.6 % 11.0-1 5.0 normal Not Available [address], [address], 04/01/2023 09:42:51 03/31/20 23 04/01/2023 CBC (H/H, RBC, INDIC ES, WBC, PLT) platelet count 248 thous and/u L 140-40 0 normal Not Available [address], [address], 04/01/2023 09:42:51 03/31/20 23 04/01/2023 CBC (H/H, RBC, INDIC ES, WBC, PLT) MPV 11.5 fL 7.5-12 .5 normal Not Available [address], [address], 04/01/2023 09:42:51 10/03/19 24 10/04/2023 CBC (H/H, RBC, INDIC ES, WBC, PLT) white blood cell count 7.2 thous and/u L 3.8-10 .8 normal Not Available [address], [address], 10/04/2023 08:26:38 10/03/19 24 10/04/2023 CBC (H/H, RBC, INDIC ES, WBC, PLT) red blood cell count 5.58 kit on/uL 4.20-5 .80 normal Not Available [address], [address], 10/04/2023 08:26:38 10/03/19 24 10/04/2023 CBC (H/H, RBC, INDIC ES, WBC, PLT) hemoglobin 16.2 g/dL 13.2-1 7.1 normal Not Available [address], [address], 10/04/2023 08:26:38 10/03/19 24 10/04/2023 CBC (H/H, RBC, INDIC ES, WBC, PLT) hematocrit 49.3 % 38.5-5 0.0 normal Not Available [address], [address], 10/04/2023 08:26:38 10/03/19 24 10/04/2023 CBC (H/H, RBC, INDIC ES, WBC, PLT) MCV 88.4 fL 80.0-1 00.0 normal Not Available [address], [address], 10/04/2023 08:26:38 10/03/19 24 10/04/2023 CBC (H/H, RBC, INDIC ES, WBC, PLT) MCH 29.0 pg 27.0-3 3.0 normal Not Available [address], [address], 10/04/2023 08:26:38 10/03/19 24 10/04/2023 CBC (H/H, RBC, INDIC ES, WBC, PLT) MCHC 32.9 g/dL 32.0-3 6.0 normal Not Available [address], [address], 10/04/2023 08:26:38 10/03/19 24 10/04/2023 CBC (H/H, RBC, INDIC ES, WBC, PLT) RDW 13.0 % 11.0-1 5.0 normal Not Available [address], [address], 10/04/2023 08:26:38 10/03/19 24 10/04/2023 CBC (H/H, RBC, INDIC ES, WBC, PLT) platelet count 251 thous and/u L 140-40 0 normal Not Available [address], [address], 10/04/2023 08:26:38 10/03/19 24 10/04/2023 CBC (H/H, RBC, INDIC ES, WBC, PLT) MPV 11.0 fL 7.5-12 .5 normal Not Available [address], [address], 10/04/2023 08:26:38 10/03/19 24 10/04/2023 MAGNE SIUM magnesium 2.0 mg/dL 1.5-2. 5 normal Not Available [address], [address], 10/04/2023 12:46:45 10/03/19 24 10/04/2023 COMPR EHENS INES METAB OLIC PANEL glucose 91 mg/dL 65-99 normal Fasti ng refer ence inter jake Not Available [address], [address], 10/04/2023 12:46:45 10/03/19 24 10/04/2023 COMPR EHENS INES METAB OLIC PANEL urea nitrogen (BUN) 13 mg/dL 7-25 normal Not Available [address], [address], 10/04/2023 12:46:45 10/03/19 24 10/04/2023 COMPR EHENS INES METAB OLIC PANEL creatinine 0.95 mg/dL 0.60-1 .26 normal Not Available [address], [address], 10/04/2023 12:46:45 10/03/19 24 10/04/2023 COMPR EHENS INES METAB OLIC PANEL eGFR 109 mL/mi n/1.7 3m2 > or = 60 normal Not Available [address], [address], 10/04/2023 12:46:45 10/03/19 24 10/04/2023 COMPR EHENS INES METAB OLIC PANEL BUN/creatini ne ratio SEE NOTE: (calc ) 6-22 Not Repor quynh: BUN and Creat inine are withi n refer ence range . Not Available [address], [address], 10/04/2023 12:46:45 10/03/19 24 10/04/2023 COMPR EHENS INES METAB OLIC PANEL sodium 139 mmol/ L 135-14 6 normal Not Available [address], [address], 10/04/2023 12:46:45 10/03/19 24 10/04/2023 COMPR EHENS INES METAB OLIC PANEL potassium 4.5 mmol/ L 3.5-5. 3 normal Not Available [address], [address], 10/04/2023 12:46:45 10/03/19 24 10/04/2023 COMPR EHENS INES METAB OLIC PANEL chloride 104 mmol/ L 98-110 normal Not Available [address], [address], 10/04/2023 12:46:45 10/03/19 24 10/04/2023 COMPR EHENS INES METAB OLIC PANEL carbon dioxide 27 mmol/ L 20-32 normal Not Available [address], [address], 10/04/2023 12:46:45 10/03/19 24 10/04/2023 COMPR EHENS INES METAB OLIC PANEL calcium 10.0 mg/dL 8.6-10 .3 normal Not Available [address], [address], 10/04/2023 12:46:45 10/03/19 24 10/04/2023 COMPR EHENS INES METAB OLIC PANEL protein, total 7.4 g/dL 6.1-8. 1 normal Not Available [address], [address], 10/04/2023 12:46:45 10/03/19 24 10/04/2023 COMPR EHENS INES METAB OLIC PANEL albumin 4.9 g/dL 3.6-5. 1 normal Not Available [address], [address], 10/04/2023 12:46:45 10/03/19 24 10/04/2023 COMPR EHENS INES METAB OLIC PANEL globulin 2.5 g/dL_ (calc ) 1.9-3. 7 normal Not Available [address], [address], 10/04/2023 12:46:45 10/03/19 24 10/04/2023 COMPR EHENS INES METAB OLIC PANEL albumin/glob ulin ratio 2.0 (calc ) 1.0-2. 5 normal Not Available [address], [address], 10/04/2023 12:46:45 10/03/19 24 10/04/2023 COMPR EHENS INES METAB OLIC PANEL bilirubin, total 0.6 mg/dL 0.2-1. 2 normal Not Available [address], [address], 10/04/2023 12:46:45 10/03/19 24 10/04/2023 COMPR EHENS INES METAB OLIC PANEL alkaline phosphatase 83 U/L 36-130 normal Not Available [address] [place] [address] [place], [address], 10/04/2023 12:46:45 10/03/19 24 10/04/2023 COMPR EHENS INES METAB OLIC PANEL AST 17 U/L 10-40 normal Not Available [address], [address], 10/04/2023 12:46:45 10/03/19 24 10/04/2023 COMPR EHENS INES METAB OLIC PANEL ALT 35 U/L 9-46 normal Not Available [address], [address], 10/04/2023 12:46:45 Result Notes None recorded. Problems Name Problem SNOMED Code Status Onset Date Resolution Date Notes Provider Name and Address Organization Details Recorded Time Osteoarthritis of multiple joints 242748670 Active 2020 Arianna Mcgee, HOME OFFICE REPRESENTATIVE-BC, PMHNP-BC [address], [place], [address], [facility] 3 11:39:23 Cramp in lower limb 670810474 Active 2020 Arianna Mcgee, HOME OFFICE REPRESENTATIVE-BC, PMHNP-BC [address], [place], [address], [facility] 3 11:39:23 Gastroesophage al reflux disease without esophagitis 698092882 Active 2020 Arianna Mcgee HOME OFFICE REPRESENTATIVE-BC, PMHNP-BC [address], [place], [address], [facility] 3 11:39:23 Neuropathy 227605902 Active 2020 Arianna Mcgee HOME OFFICE REPRESENTATIVE-BC, PMHNP-BC [address], [place], [address], [facility] 3 11:39:23 Anxiety 50976697 Active 2020 Arianna Mcgee HOME OFFICE REPRESENTATIVE-BC, PMHNP-BC [address], [place], [address], [facility] 3 11:39:23 Spasm of back muscles 698932098 Active 2020 Arianna Mcgee HOME OFFICE REPRESENTATIVE-BC, PMHNP-BC [address], [place], [address], [facility] 3 11:39:23 Hyperlipidemia 65873218 Active 2020 Crystal Mansi Mcgee, HOME OFFICE REPRESENTATIVE-BC, PMHNP-BC [address], [place], [address], [facility] 3 11:39:24 Elevated blood-pressure reading without diagnosis of hypertension 306848138 Active 2021 NELLA Foss-BC, PMHNP-BC [address] , [place], [place], [address] [place] [address] 4, [facility] 3 11:39:23 Mixed hyperlipidemia 706104042 Active 2021 NELLA Foss-BC, PMHNP-BC [address] , [place], [address], [facility] 3 11:39:23 Essential hypertension 05351340 Active 2021 NELLA Foss-BC, PMHNP-BC [address] [place], [address], [facility] 3 11:39:24 Generalized anxiety disorder 38156928 Active 2021 NELLA Foss-BC, PMHNP-BC [address] [place], [address], [facility] 3 11:39:23 Nightmares 152734096 Active 2021 NELLA Foss-BC, PMHNP-BC [address] [place], [address], [facility] 3 11:39:23 Problem Notes None recorded. Procedures Surgical History Date Name Laterality Status Provider Name and Address Organization Details Recorded Time cardiac catheterization completed [facility] 06/06/2020 15:47:32 type 2 tympanoplasty completed [facility] 06/06/2020 15:48:27 open reduction of fracture with internal fixation completed [facility] 06/06/2020 16:38:38 Leg Surgery completed MATTHEW FossP-BC, PMHNP-BC [address] [place], [address], [facility] 06/10/2020 14:21:00 Imaging Results None recorded. Procedure Notes None recorded. Medical Equipment None Reported. Allergies No known drug allergies Medications Name Sig Start Date Stop Date Status Note LastModified by Organization Details LastModified Time fluoxetine 40 mg capsule TAKE 1 CAPSULE BY MOUTH EVERY DAY 09/06 completed Not Available Not Available Not Available cyclobenzap rine 10 mg tablet TAKE 1 TABLET BY MOUTH THREE TIMES DAILY FOR UP TO 14 DAYS NEEDED FOR MUSCLE SPASMS 09/06 completed Not Available Not Available Not Available atorvastati n 40 mg tablet Take 1 tablet every day by oral route at bedtime for 90 days. 2023 active Not Available Not Available Not Avai lable atorvastati n 10 mg tablet TAKE 1 TABLET BY MOUTH EVERY DAY AT BEDTIME 03/26 completed Not Available Not Available Not Available azithromyci n 250 mg tablet TK ONE T PO QD UTD PER MD 06/10 completed Not Available Not Available Not Available ibuprofen 800 mg tablet Take 1 tablet 3 times a day by oral route as needed. 03/31 completed Not Available Not Available Not Available hydrocodone 5 mg-acetamin ophen 325 mg tablet TAKE 1 TABLET BY MOUTH EVERY 6 HOURS FOR UP TO 6 DOSES NEEDED FOR PAIN 10/02 completed Not Available Not Available Not Available prazosin 1 mg capsule TAKE 1 CAPSULE BY MOUTH EVERY DAY AT BEDTIME 09/06 completed Not Available Not Available Not Available amlodipine 2.5 mg tablet active Not Available Not Available Not Available tramadol 50 mg tablet TAKE 2 TABLETS BY MOUTH EVERY 8 HOURS NEEDED 12/09 completed Not Available Not Available Not Available ketorolac 0.5 % eye drops INSTILL 1 DROP IN LEFT EYE FOUR TIMES DAILY FOR UP TO 7 DAYS NEEDED FOR PAIN 03/31 completed Not Available Not Available Not Available amoxicillin 875 mg tablet TAKE 1 TABLET BY MOUTH TWICE DAILY FOR 10 DAYS. 03/01 completed Not Available Not Available Not Available alprazolam 0.25 mg tablet TAKE 1 TABLET BY MOUTH THREE TIMES DAILY NEEDED 09/18 completed Not Available Not Available Not Available pseudoephed rine-guaife nesin ER 120 mg-1,200 mg tab,extend release 12hr Take 1 tablet every 12 hours by oral route for 5 days. 09/06 completed Not Available Not Available Not Available phenazopyri dine 100 mg tablet TAKE 1 TABLET BY MOUTH THREE TIMES DAILY NEEDED FOR PAIN FOR 6 DOSES 07/24 completed Not Available Not Available Not Available benzonatate 100 mg capsule TAKE 1 CAPSULE BY MOUTH THREE TIMES DAILY NEEDED FOR COUGH UP TO 10 DAYS 03/24 completed Not Available Not Available Not Available pantoprazol e 40 mg tablet,shalini yed release Take 1 tablet twice a day by oral route for 90 days. 2023 active Not Available Not Available Not Avai lable erythromyci n 5 mg/gram (0.5 %) eye ointment APPLY 1 CENTIMETE R IN LEFT EYE FOUR TIMES DAILY FOR 5 DAYS 03/31 completed Not Available Not Available Not Available fluoxetine 10 mg capsule TAKE 1 CAPSULE BY MOUTH EVERY DAY 03/10 completed Not Available Not Available Not Available gabapentin 300 mg capsule TAKE 1 CAPSULE BY MOUTH THREE TIMES DAILY 12/09 completed Not Available Not Available Not Available mupirocin 2 % topical ointment APPLY A SMALL AMOUNT TO THE INNER AREA OF NASAL OPENINGS BY TOPICAL ROUTE 3 TIMES PER DAY 03/01 completed Not Available Not Available Not Available gabapentin 100 mg capsule TAKE 1 CAPSULE BY MOUTH TWICE DAILY 06/30 completed Not Available Not Available Not Available levofloxaci n 750 mg tablet TAKE 1 TABLET BY MOUTH DAILY 07/24 completed Not Available Not Available Not Available methylpredn isolone 4 mg tablets in a dose pack FOLLOW PACKAGE DIRECTION S 03/01 completed Not Available Not Available Not Available albuterol sulfate HFA 90 mcg/actuati on aerosol inhaler TAKE 2 PUFFS BY INHALATIO N EVERY 6 HOURS NEEDED FOR COIUGH 09/06 completed Not Available Not Available Not Available colchicine 0.6 mg tablet TAKE 1 TABLET (0.6 MG) BY ORAL ROUTE ONCE DAILY, Repeatx1 in hour. No more than 2 a day 09/06 completed Not Available Not Available Not Available celecoxib 100 mg capsule TAKE 1 CAPSULE BY MOUTH TWICE DAILY 12/09 completed Not Available Not Available Not Available ondansetron 4 mg disintegrat ing tablet Place 1 tablet 3 times a day by transling ual route as needed. 10/02 completed Not Available Not Available Not Available fluoxetine 20 mg capsule TAKE 1 CAPSULE BY MOUTH EVERY DAY 03/24 completed Not Available Not Available Not Available naproxen 500 mg tablet 10/02 completed Not Available Not Available Not Available ezetimibe 10 mg tablet TAKE 1 TABLET BY MOUTH AT BEDTIME 09/06 completed Not Available Not Available Not Available ciprofloxac in 0.3 %-dexametha sone 0.1 % ear drops,suspe nsion PLACE 4 DROPS IN THE RIGHT EAR EVERY 12 HOURS FOR 7 DAYS. 03/01 completed Not Available Not Available Not Available cholestyram ine (with sugar) 4 gram oral powder 03/24 completed Not Available Not Available Not Available Vitals Date Recorded Body height Body temperature Heart rate Oxygen saturation Oxygen saturation in Arterial blood by Pulse oximetry Respiratory rate Body mass index (BMI) Body weight Systolic And Diastolic Systolic And Diastolic Provider Name and Address Organization Details Last Updated DateTime 3 185.42 cm 97.7 [degF] 69 /min 98 % 98 % 16 /min 32.2 kg/m2 117084. 46 g 174/98 mm[Hg] 142/70 mm[Hg] Porsche Pat [facility] 3 11:20:20 Date Recorded Body height Body mass index (BMI) Body weight Heart rate Respiratory rate Oxygen saturation Oxygen saturation in Arterial blood by Pulse oximetry Body temperature Systolic And Diastolic Provider Name and Address Organization Details Last Updated DateTime 3 185.42 cm 31.3 kg/m2 113937. 83 g 63 /min 16 /min 99 % 99 % 98 [degF] 138/83 mm[Hg] Shamyra Gilbert [facility] 3 10:15:41 Date Recorded Body height Heart rate Respiratory rate Oxygen saturation Oxygen saturation in Arterial blood by Pulse oximetry Body temperature Body mass index (BMI) Body weight Systolic And Diastolic Provider Name and Address Organization Details Last Updated DateTime 4 180.34 cm 102 /min 20 /min 100 % 100 % 98 [degF] 32.7 kg/m2 522277. 77 g 130/90 mm[Hg] Katharine Pat [facility] 4 16:25:14 Date Recorded Body height Body mass index (BMI) Body weight Oxygen saturation Oxygen saturation in Arterial blood by Pulse oximetry Heart rate Respiratory rate Body temperature Systolic And Diastolic Provider Name and Address Organization Details Last Updated DateTime 2 185.42 cm 32.9 kg/m2 669706. 94 g 100 % 100 % 62 /min 20 /min 97.6 [degF] 142/74 mm[Hg] Porsche Padillanton [facility] 2 11:11:30 Date Recorded Body height Body mass index (BMI) Body weight Heart rate Respiratory rate Oxygen saturation Oxygen saturation in Arterial blood by Pulse oximetry Body temperature Systolic And Diastolic Provider Name and Address Organization Details Last Updated DateTime 3 185.42 cm 32.1 kg/m2 476679. 66 g 71 /min 18 /min 98 % 98 % 97.9 [degF] 131/88 mm[Hg] Ahsan Rosariowell [facility] 3 11:22:33 Social History Question Answer Notes LastModified by Organizat ion Details LastModified Time Tobacco Smoking Status Former Smoker 2013 Arianna Mcgee, HOME OFFICE REPRESENTATIVE-BC, PMHNP-BC [address] [place] [address], [address], [facility] 09/06/2022 10:29:44 Do You Have An Advance Directive? No Information not available 06/06/2020 Are You Currently Sexually Active With Anyone Who Has Traveled (within The Last 12 Weeks) To A Zika-affected Area? No [email or web address] Information not available 07/28/2021 Do You Wear A Helmet When Biking? Yes [email or web address] Information not available 07/28/2021 Are You Blind Or Do You Have Difficulty Seeing? No [email or web address] Information not available 07/28/2021 Is Blood Transfusion Acceptable In An Emergency? Yes [email or web address] Information not available 12/09/2021 What Is Your Level Of Caffeine Consumption? Occasional Information not available 06/06/2020 How Much Tobacco Do You Chew? 1/day Information not available 09/06/2022 What Is Your Code Status? Full Code [email or web address] Information not available 07/28/2021 In The 14 Days Before Symptom Onset, Have You Had Close Contact With A Laboratory-confir med COVID-19 While That Case Was Ill? No [email or web address] Information not available 07/28/2021 In The 14 Days Before Symptom Onset, Have You Had Close Contact With A Person Who Is Under Investigation For COVID-19 While That Person Was Ill? No [email or web address] Information not available 07/28/2021 Have You Been To An Area Known To Be High Risk For COVID-19? No [email or web address] Information not available 07/28/2021 Are You Deaf Or Do You Have Serious Difficulty Hearing? No [email or web address] Information not available 07/28/2021 What Type Of Diet Are You Following? REGULAR Information not available 06/06/2020 Which Illicit Or Recreational Drugs Have You Used? Marijuana Information not available 06/06/2020 Have You Processed Blood Or Body Fluids From An Ebola Virus Disease Patient Without Appropriate PPE? No Information not available 07/28/2021 Do You Reside In Or Have You Traveled To An Area Where Ebola Virus Transmission Is Active? No [email or web address] Information not available 07/28/2021 What Is The Highest Grade Or Level Of School You Have Completed Or The Highest Degree You Have Received? [id number] [email or web address] Information not available 07/28/2021 How Many Days Of Moderate To Strenuous Exercise, Like A Brisk Walk, Did You Do In The Last 7 Days? 4 Information not available 10/03/2023 How Many Times Per Week Do You Exercise? 3-4 Times Per Week [email or web address] Information not available 10/03/2023 Have There Been Any Changes To Your Family Or Social Situation? No [email or web address] Information no t available 07/28/2021 What Is The Fluoride Status Of Your Home? Unknown [email or web address] Information not available 07/28/2021 When Did You Quit Smoking? 1-5yearssincel luiza [email or web address] Information not available 09/06/2022 Are There Any Guns Present In Your Home? Yes [email or web address] Information not available 06/10/2020 Which Of Your Hands Is Dominant? Right [email or web address] Information not available 07/28/2021 Have You Recently Or Are You Planning To Travel To An Area With Zika Virus? No [email or web address] Information not available 07/28/2021 Do You Have A Medical Power Of Mangle Feeder? No [email or web address] Information not available 07/28/2021 What Was The Date Of Your Most Recent Tobacco Screening? 10/03/2023 [email or web address] Information not available 10/03/2023 How Many Children Do You Have? 2 [email or web address] Information not available 06/10/2020 What Is Your Current Pack Years? 10packyears [email or web address] Information not available 09/06/2022 Do You Have Any Pets? Yes [email or web address] Information not available 07/28/2021 Do You Use Protection During Sex? No Information not available 10/03/2023 What Is Your Relationship Status? Information not available 07/28/2021 Do You Use Your Seat Belt Or Car Seat Routinely? Yes [email or web address] Information not available 07/28/2021 Are You Sexually Active? Yes Information not available 06/06/2020 Do You Have Smoke And Carbon Monoxide Detectors In Your Home? Yes [email or web address] Information not available 07/28/2021 At What Age Did You Start Smoking Tobacco? 18 [email or web address] Information not available 06/10/2020 Are You Passively Exposed To Smoke? No [email or web address] Information no t available 06/10/2020 How Much Tobacco Do You Smoke? 1 PPW Information not available 06/06/2020 Do You Participate In Social Media? Yes [email or web address] Information not available 12/09/2021 Do You Use Sunscreen Routinely? Yes Information not available 06/06/2020 How Many Years Have You Smoked Tobacco? 8.5 [email or web address] Information not available 09/06/2022 Have You Recently Traveled Abroad? No [email or web address] Information not available 07/28/2021 Have You Used IV Drugs? No [email or web address] Information not available 09/06/2022 Do You Have Difficulty Walking Or Climbing Stairs? No [email or web address] Information not available 07/28/2021 Are You Currently In School? No [email or web address] Information not available 07/28/2021 Do You Have Any Dietary Restrictions? No [email or web address] Information not available 09/06/2022 Sex: Male Functional Status Question Answer Note LastModified by Organizat ion Details LastModified Time Do you or have you ever used smokeless tobacco? Current snuff user Information not available 06/10/2020 Are you currently employed? No [email or web address] Information not available 06/10/2020 Do you have transportation difficulties? No [email or web address] Information not available 07/28/2021 Are you able to care for yourself? Yes Information n ot available 06/06/2020 Do you have difficulty dressing or bathing? No [email or web address] Information not available 07/28/2021 Do you or have you ever used e-cigarettes or vape? Never used electronic cigarettes [email or web address] Information not available 06/10/2020 What is your exercise level? Occasional Information not available 06/06/2020 Do you use any illicit or recreational drugs? Yes Information not available 09/06/2022 Do you or have you ever used any other forms of tobacco or nicotine? Yes [email or web address] Information not available 09/06/2022 What is your level of alcohol consumption? None [email or web address] Information not available 09/06/2022 Are you able to walk? YESWOREST Information not available 06/06/2020 Do you have difficulty doing errands alone? No [email or web address] Information not available 07/28/2021 What is your occupation? unemployed Information not available 06/06/2020 Mental Status Question Answer Note LastModified by Organizat ion Details LastModified Time Do you feel stressed (tense, restless, nervous, or anxious, or unable to sleep at night)? [id number] [email or web address] Information not available 07/28/2021 Do you have difficulty concentrating, remembering or making decisions? No [email or web address] Information no t available 07/28/2021 Family History Relationship Description Onset Age of this Age Resolved Age Notes LastModified by Organization Details LastModified Time Father Diabetes mellitus Not available 2020 13:08:54 Father Myocardial infarction Not available 06/06 13:09:12 Father Carlos-Chaparrita son-White pattern 2005 Not available 06/06/2020 13:09:37 Father Essential hypertension Not available 03/2021 13:10:01 Father Renal cell carcinoma Not available 2020 13:10:17 Father Exposure to Agent [place] Not available 03/2021 13:10:30 Father Coronary arterioscler osis [email or web address] Not available 09/23 08:19:26 Mother Essential hypertension Not available 03/2021 13:10:49 Mother Fibromyalgia Not availa ble 06/06/2020 13:11:01 Mother Degeneration of intervertebr al disc Not available 2020 13:11:13 Unspecified Relation Cerebrovascu lar accident Not available 03/2021 15:49:14 Unspecified Relation Arthritis Not available 021 15:49:29 Unspecified Relation Congestive heart failure Not available 2020 15:49:48 Unspecified Relation Gout Not available 15:49:58 Medical History Condition Response Obesity Y Chronic pain Y Fractures Y Infectious Disease/Disorders/Virus Y Hyperlipidemia Y Past Encounters Encounter ID Performer Location Encounter Start Date Encounter Closed Date Diagnosis/Indication Diagnosis SNOMED-CT Code Diagnosis ICD10 Code Diagnosis Note [id number] Arianna Nazario Everardo [facility] Main Office [address] [place] [address] 06/10/2020 06:50:05 06/10/2020 15:07:06 Cramp in lower limb 834444422 R25.2 Gastroesop hageal reflux disease without esophagitis 709346987 K21.9 Osteoarthr itis of multiple joints 141131733 M15.9 [id number] Arianna Nazario Everardo [facility] Main Office [address] [place] [address] 07/08/2020 07:19:55 07/08/2020 14:16:16 Cramp in lower limb 020808172 R25.2 Has been doing better with cramps with Flexeril. Gastroesop hageal reflux disease without esophagitis 265421719 K21.9 Lifestyle modificati ons with wt loss, avoid meals 2-3h before HS. Consider eliminatin g food triggers: chocolate, caffeine, ETOH, acid/spicy food. Doing better with medication . Osteoarthr itis of multiple joints 630787052 M15.9 Elevated blood-pressure reading without diagnosis of hypertension 951652275 R03.0 Hyperlipidemia 70924824 E78.5 Neuropathy 538855946 G62 .9 [id number] Arianna Mcgee [facility] Main Office [address] [place] [address] 07/24/2020 11:44:28 07/24/2020 13:51:18 Anxiety 75995611 F41.9 Panic attack 650396138 F 41.0 Avoiding caffeine, nicotine, alcohol, and recreation al drugs may help relieve fear and anxiety. Getting regular sleep and exercise, and practicing relaxation techniques such as deep breathing and yoga may also help. [id number] Arianna Mcgee [facility] Main Office [address] [place] [address] 08/05/2020 11:09:44 08/05/2020 11:37:07 Anxiety 43314090 F41.9 Doing much better with the medication . Used Xanax nightly for about 7 days and then a few days into the next week, but has not used it in a few days. Sleeping better and doing much better overall. Continue medication . Will evaluate at next visit on status. Osteoarthr itis of multiple joints [id number] M15.9 Arianna Mcgee [facility] Main Office [address] [place] [address] 09/30/2020 06:40:54 09/30/2020 13:01:31 Anxiety 35570655 F41.9 Osteoarthr itis of multiple joints 630608759 M15.9 Neuropathy 909219979 G62 .9 Spasm of back muscles 20 9432058 M62.830 Gastroesop hageal reflux disease without esophagitis 676976371 K21.9 Lifestyle modificati ons with wt loss, avoid meals 2-3h before HS. Consider eliminatin g food triggers: chocolate, caffeine, ETOH, acid/spicy food. Doing better with medication . ETHAN Foss, [facility] Main Office [address] [place] [address] 10/28/2020 06:35:17 10/28/2020 10:19:15 Anxiety 97460505 F41.9 Doing better with anxiety. Continue regimen. Osteoarthr itis of multiple joints 348255045 M15.9 Doing better with Celebrex. Continue regimen. Neuropathy 315498529 G62 .9 Doing better with gabapentin . Continue regimen. Spasm of back muscles 20 1051777 M62.830 Improvemen t with Flexeril. Continue regimen. Gastroesop hageal reflux disease without esophagitis 737936057 K21.9 Lifestyle modificati ons with wt loss, avoid meals 2-3h before HS. Consider eliminatin g food triggers: chocolate, caffeine, ETOH, acid/spicy food. Doing better with medication . ETHAN Foss, [facility] Main Office [address] [place] [address] 12/23/2020 05:17:58 12/23/2020 12:23:06 Anxiety 74100224 F41.9 Controlled with regimen. Continue with medication . Osteoarthr itis of multiple joints 890923188 M15.9 Has been having some increasing pain which is r/t hardware in RLE. Neuropathy 774249684 G62 .9 Doing better with gabapentin . Continue regimen. Spasm of back muscles 20 2140825 M62.830 Improvemen t with Flexeril. Continue regimen. Gastroesop hageal reflux disease without esophagitis 117898013 K21.9 Lifestyle modificati ons with wt loss, avoid meals 2-3h before HS. Consider eliminatin g food triggers: chocolate, caffeine, ETOH, acid/spicy food. Doing better with medication . History of fracture 3910 63707 Z87.81 Adult heal th examination 513741380 Z00.00 [id number] ETHAN Foss, [facility] Main Office [address] [place] [address] 03/10/2021 06:35:51 03/10/2021 11:35:34 Osteoarthritis of multiple joints 427504070 M15.9 Has appointmen t with orthopedic s in April 2021. Anxiety 18124639 F41.9 Controlled with regimen. Continue with medication . Snuff user 710783726 Z72 .0 [id number] Arianna Mcgee [facility] Main Office [address] [place] [address] 04/07/2021 06:34:26 04/07/2021 12:38:38 Neuropathy 989109990 G62.9 Doing better with gabapentin . Continue regimen. Muscle pain 52028166 M79 .10 Osteoarthr itis of multiple joints 369710473 M15.9 Anxiety 32378480 F41.9 Controlled with regimen. Continue with medication . Gastroesop hageal reflux disease without esophagitis 127963520 K21.9 Lifestyle modificati ons with wt loss, avoid meals 2-3h before HS. Consider eliminatin g food triggers: chocolate, caffeine, ETOH, acid/spicy food. Doing better with medication . Hyperlipidemia 53790940 E78.5 Vitamin D deficiency 347 89361 E55.9 [id number] [facility] Main Office [address] [place] [address] 06/30/2021 06:37:12 06/30/2021 15:17:34 Neuropathy 974019198 G62.9 Doing better with gabapentin . Continue regimen. Osteoarthr itis of multiple joints 503502478 M15.9 Did see orthopedic s and nothing else further can be done. Anxiety 93943841 F41.9 Controlled with regimen. Continue with medication . Hyperlipidemia 52302684 E78.5 Low back pain 344122488 M54.50 XR order sent to [facility] to look for any abnormalit ies. Elevated blood-pressure reading without diagnosis of hypertension 895814893 R03.0 Having increased pain today. BP is usually stable. Gastroesop hageal reflux disease without esophagitis 598514747 K21.9 Lifestyle modificati ons with wt loss, avoid meals 2-3h before HS. Consider eliminatin g food triggers: chocolate, caffeine, ETOH, acid/spicy food. Doing better with medication . Body mass index 30+ - obesity 574299024 Z68.35 [id number] Arianna Mcgee [facility] Home [address] [place] [address] 07/28/2021 06:42:18 07/28/2021 11:46:33 Hyperlipidemia 12033022 E78.5 In order to maintain a LDL<70 please eat a heart-heal thy diet that is low in saturated fats and salt and includes whole grains, fruits, vegetables and lean protein; exercise regularly; maintain a heart healthy weight; continue to take your prescripti on medication s as directed. Low back pain 579717469 M54.50 Counseled on results of lumbar x-ray. Counseled on being muscles need to be strengthen ed. [place] [facility]. Counseled on slowly starting to use the machines to work out. [id number] Arianna Mcgee [facility] Main Office [address] [address] 09/23/2021 13:36:33 09/23/2021 14:02:10 Right upper quadrant pain 579574817 R10.11 [id number] Arianna Mcgee [facility] Group [address] [place] [address] 12/09/2021 11:35:17 12/09/2021 13:52:26 Hyperlipidemia 30457324 E78.5 labs to eval levels Elevated blood-pressure reading without diagnosis of hypertension 495377027 R03.0 labs to eval levels. Counseled on blood pressure. Mixed hyperlipidemia 267 921359 E78.2 labs to eval levels. Lipid panel obtained. [id number] Arianna Mcgee [facility] Group [address] [place] [address] 03/01/2022 08:31:20 03/01/2022 09:17:46 Mixed hyperlipidemia 323512467 E78.2 medication refill Nightmares 558397628 F51 .5 starting on prazosin to help with nightmares as having flare-ups with recent events. Essential hypertension 79518044 I10 Significan tly elevated. Denies symptoms. Very agitated and upset given the recent changes with changes of being dx with cancer and not having it.BP has not been significan tly elevated. Will recheck at next visit and if still elevated will start medication . Generalize d anxiety disorder 42957147 F41.1 Worsening anxiety [id number] [facility] Group [address] [place] [address] 03/24/2022 10:43:32 03/24/2022 13:25:36 Mixed hyperlipidemia 572274945 E78.2 taking medication . labs to eval levels. Nightmares 478054545 F51 .5 Prazosin has been helping with nightmares Essential hypertension 14725559 I10 taking medication . labs to eval levels.sta rted small dose of Amlodipine to help with BP. Generalize d anxiety disorder 54260133 F41.1 Has been doing better with ORTIZ. Gastroesop hageal reflux disease without esophagitis 738180431 K21.9 Lifestyle modificati ons with wt loss, avoid meals 2-3h before HS. Consider eliminatin g food triggers: chocolate, caffeine, ETOH, acid/spicy food. Congestion of nasal sinus 87383064 R09.81 Given to help with increasing congestion that is backing up into e.tube [id number] [facility] Group [address] [place] [address] 06/01/2022 06:48:01 06/01/2022 21:12:03 Mixed hyperlipidemia 149909793 E78.2 In order to maintain a LDL<70 please eat a heart-heal thy diet that is low in saturated fats and salt and includes whole grains, fruits, vegetables and lean protein; exercise regularly; maintain a heart healthy weight; continue to take your prescripti on medication s as directed. Essential hypertension 68884425 I10 medication for elevating BP. Continue regimen. Gastroesop hageal reflux disease without esophagitis 692374962 K21.9 Lifestyle modificati ons with wt loss, avoid meals 2-3h before HS. Consider eliminatin g food triggers: chocolate, caffeine, ETOH, acid/spicy food. [id number] Arianna Mcgee [facility] Main Office [address] [place] [address] 09/06/2022 10:05:08 09/06/2022 11:46:08 Mixed hyperlipidemia 559220660 E78.2 Taking medication s. labs to eval levels. Essential hypertension 10392772 I10 Taking medication s. labs to eval levels. Gastroesop hageal reflux disease without esophagitis 794528824 K21.9 Lifestyle modificati ons with wt loss, avoid meals 2-3h before HS. Consider eliminatin g food triggers: chocolate, caffeine, ETOH, acid/spicy food. Body mass index 30+ - obesity 199465112 Z68.31 [id number] Arianna Mcgee [facility] Main Office [address] [place] [address] 03/31/2023 11:16:55 03/31/2023 14:33:13 Mixed hyperlipidemia 083926188 E78.2 Not consistent ly taking medication s. labs to eval levels. Essential hypertension 98394313 I10 Taking medication s. labs to eval levels. Gastroesop hageal reflux disease without esophagitis 869932574 K21.9 Lifestyle modificati ons with wt loss, avoid meals 2-3h before HS. Consider eliminatin g food triggers: chocolate, caffeine, ETOH, acid/spicy food. Fatigue 06609946 R53.83 [id number] Arianna Mcgee [facility] Main Office [address] [place] [address] 10/03/2023 16:22:04 10/03/2023 18:02:33 Mixed hyperlipidemia 888862730 E78.2 Not consistent ly taking medication s. labs to eval levels. Essential hypertension 18131781 I10 Taking medication s. labs to eval levels. Gastroesop hageal reflux disease without esophagitis 582392734 K21.9 Lifestyle modificati ons with wt loss, avoid meals 2-3h before HS. Consider eliminatin g food triggers: chocolate, caffeine, ETOH, acid/spicy food. Concussion with loss of consciousness 50434502 S06.0X9D Health Concerns Section Related Observation LastModified by Organization Detai ls LastModified Time None Recorded Concern Status LastModified by Organization Details LastModified Time None Recorded Advance Directives Directive N: Payers Insurance Date Sequence Insurance Name Policy Number Policy Rodriguez Covered Member ID Rodriguez Member ID Guarantor Name 11/17/2023 1 [facility] (MEDICAID HMO) [id number] Harvey Day [id number] Harvey Day Notes Date Note Type Note Provider Name and Address Organization Details Recorded Time 03/24/2022 text/html MDD / Anxiety - doing much better with medication. denies SI/HI.GERD - Patient c/o heartburn/regurgita tion. Denies cough, SOB, sore throat, changes of taste. No dysphagia. No CP.Ear - reports increasing R ear pain but has just got over Influenza and continues to have increasing nasal congestion.HLD - Compliant with statin. No side effects.HTN - Does not report any HURTADO, blurry vision, dizziness, CP, SOB, or palpitations. Following a low salt diet. Exercising. ETHAN Foss, MELI-LU [address] [place], [address], [facility] 03/24/2022 11:21:43 06/01/2022 text/html GERD - Patient c /o heartburn/regurgita tion. Denies cough, SOB, sore throat, changes of taste. No dysphagia. No CP.HLD - Compliant with statin. No side effects.HTN - Does not report any HURTADO, blurry vision, dizziness, CP, SOB, or palpitations. Following a low salt diet. Exercising. ETHAN Foss, PMHNP-BC [address] [place], [address], [facility] 06/01/2022 18:13:16 09/06/2022 text/html GERD - Patient c /o heartburn/regurgita tion. Denies cough, SOB, sore throat, changes of taste. No dysphagia. No CP.HLD - Not taking medication consistently. No side effects.HTN - Does not report any HURTADO, blurry vision, dizziness, CP, SOB, or palpitations. ETHAN Foss, PMHNP-BC [address] [place], [address], [facility] 09/06/2022 11:06:30 03/31/2023 text/html GERD - Patient i s doing good with heartburn/regurgita tion with taking medication. Denies cough, SOB, sore throat, changes of taste. No dysphagia. No CP.HLD - Not taking medication consistently. No side effects.HTN - Does not report any HURTADO, blurry vision, dizziness, CP, SOB, or palpitations. NELLA Foss-BC, PMHNP-BC [address] [place], [address], [facility] 03/31/2023 12:38:20 10/03/2023 text/html GERD - Patient i s doing good with heartburn/regurgita tion with taking medication. Denies cough, SOB, sore throat, changes of taste. No dysphagia. No CP.HLD - Not taking medication consistently. No side effects.HTN - Does not report any HURTADO, blurry vision, dizziness, CP, SOB, or palpitations. Harvey went to [facility] on 09/17/23 for Head [id number] A&O x4 male patient presents for evaluation of head injury. Patient states just prior to arrival a large rock fell approximately 4 ft striking him to the top of the head. No LOC, no anticoagulation. Patient was complaining of headache, neck pain, vision change, dizziness since. Also endorses neck pain. Denies emesis, retrograde amnesia, chest pain, dyspneaPhysical exam shows mild abrasion to top left of head. TMs unremarkable bilaterally. C-collar applied prior to my arrival. Cranial nerves intact. Neuro exam unremarkable. No numbness/tingling/p aralysis due extremities. Abdomen soft nontender all quadrantsDifferenti al: Concussion, ICH, abrasion, fracture, sprainNoted to have concussion. No F/U with neurology done. NELLA Foss-BC, PMHNP-BC [address] [place], [address], [facility] 10/03/2023 17:29:03
[2024-10-29 13:28] VITALS: BP 139/86; PULSE 81; RESP 16; TEMP 36.5; O2SAT 96
--- NOTE | 2024-10-29 13:30 | ED.URI ---
HPI - URI/Sore Throat General Chief Complaint: Upper Respiratory Infection Stated Complaint: Cough/Sore Throat/Nausea/Diarrhea Time Seen by Provider: 10/29/24 13:31 Source: patient, RN notes reviewed and old records reviewed Mode of arrival: ambulatory Limitations: no limitations History of Present Illness HPI Narrative: 34-year-old male presents to the [facility] with complaints of cough, sore throat, nausea, diarrhea. Patient was evaluated [place] [facility] on October 16 for same symptoms. Reviewed notes from that visit. No acute findings noted. Patient was prescribed an inhaler as well as steroids. Patient also reports that he was evaluated on October 19 at [facility] for chest pain which he was then discharged home. Patient reports that the cough and sore throat have greatly improved. Still having a significant amount of fatigue Patient reports that he needs a note for work. States that he was at work For and was told to be evaluated. 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 Has a at home which he reports only getting 2-3 hours per day of sleep. Discussed signs and symptoms to proceed to emergency room which he verbalized understanding. Related Data Home Medications ?Medication ?Instructions ?Recorded ?Confirmed ?Last Taken ?Type aspirin 81 mg tablet,delayed 81 mg PO DAILY 10/08/21 01/01/22 Unknown History release (Adult Aspirin Regimen) omeprazole 20 mg tablet,delayed 20 mg PO DAILY 01/01/22 01/01/22 Unknown History release Allergies Allergy/AdvReac Type Severity Reaction Status Date / Time No Known Allergies Allergy Verified 01/01/22 14:26 Review of Systems Review of Systems: All systems reviewed & are unremarkable except as noted in HPI and below Constitutional: Constitutional: Reports as per HPI and Reports body ache(s) ENT: Reports system reviewed and no additional complaints, except as documented Cardiovascular: Cardiovascular: Reports no additional cardiovascular complaints, Denies chest pain and Denies dyspnea Respiratory: Respiratory: Reports as per HPI, Denies chest congestion, Reports cough and Denies dyspnea Musculoskeletal: Musculoskeletal: Reports as per HPI Integumentary/Breasts: Skin/Breast: Reports system reviewed and no additional complaints, except as docu PMFSH Past Medical History Medical History Obesity Diarrhea Diarrhea GERD (gastroesophageal reflux disease) RUQ abdominal pain Pharyngitis Bronchitis HLD (hyperlipidemia) Surgical History Surgical History H/O right wrist surgery History of cardiac cath 2016 History of tympanostomy Family History Family History Other Cerebrovascular accident Diabetes mellitus Family history of arthritis Family history of congestive heart failure Family history of gout Family history of heart disease in male family member before age 55 Family history of malignant neoplasm Hypertension Social History Social History Smoking status: Former smoker Substance use: current Substance use type: marijuana Last use: 12/31/21 Living arrangements: with family Gender identity (if verbalized by the patient): Male Spiritual care concerns: No Comments At the time of my signature, I reviewed and agree with the nursing past medical, surgical, social, and family history. There is no relevant family history pertinent to the patient complaint. Exam Const: General: cooperative, healthy appearing, comfortable, no acute distress, well developed, alert, tired appearing and well nourished Nutritional Appearance: well nourished Orientation/consciousness: patient oriented x3 Limitations: no limitations HENMT: Head: normal to inspection Ears: hearing grossly normal bilaterally, external ears normal, TM's normal bilaterally, EAC's normal, mastoids normal and no periauricular adenopathy Mouth: Yes Normal oral and palatal mucosa present, Yes lip normal, Yes tongue normal and Yes moist mucous membranes Throat: posterior oropharynx normal, uvula midline and no uvular edema Eyes: General: appearance normal, both eyes and all related structures Alignment and Position: alignment normal Neck: Neck: normal visual inspection, full ROM, no lymphadenopathy and no meningeal signs Chest: Chest palpation & inspection: normal inspection of the chest Resp: Effort & Inspection: normal respiratory effort and able to speak in complete sentences Auscultation: clear to auscultation bilaterally, no crackles, no rales, no rhonchi and no wheezes Cardio: Rate: regular rate GI: GI Palp: No abdominal tenderness Skin: General skin exam: normal color and no rashes or lesions noted Neuro: General: patient oriented x3, gait normal, moves all extremities and no meningeal signs Cognition (Neuro): normal cognition Speech: normal speech Gait exam (Neuro): Normal gait present Extrem: General: normal to inspection, full ROM, capillary refill normal and normal gait Psych: Appearance: grossly normal and well kempt Mental Status: mental status grossly normal Speech and movement: Normal speech and movement present and Clear speech present Affect: normal affect Attitude: cooperative Course Course Level of Care: Express Care Visit Vital Signs Vital signs: Vital Signs Temperature 97.7 F 10/29/24 13:28 Pulse Rate 81 10/29/24 13:28 Respiratory Rate 16 10/29/24 13:28 Blood Pressure 139/86 10/29/24 13:28 Pulse Oximetry 96 10/29/24 13:28 Oxygen Delivery Room Air 10/29/24 13:28 Temperature 97.7 F 10/29/24 13:28 Pulse Rate 81 10/29/24 13:28 Respiratory Rate 16 10/29/24 13:28 Blood Pressure 139/86 10/29/24 13:28 Pulse Oximetry 96 10/29/24 13:28 Oxygen Delivery Room Air 10/29/24 13:28 Reviewed MDM - URI/Sore Throat MDM Narrative Medical decision making narrative: patient sitting in exam room. Patient is nontoxic, vitals are stable. Patient presents with several weeks of continued symptoms. Has not seen a primary care provider. Was evaluated 13 days ago at [facility], reviewed notes from that visit. Patient does report a visit to [facility] on the 19 of October. no acute findings noted on exam. Through joint decision making. Patient would like to go home, rest and if symptoms do not improve with rest will proceed to the nearest emergency room. Will give a work note. Discharge instructions reviewed with patient, as well as provided in writing per nursing staff. The instructions also include specific and strict return/GO TO THE ER as well as f/u information. All questions have been answered, and the patient deny any further questions with discharge and discharge plan. Some parts of this dictation were generated by voice recognition software and may contain typographical and/or grammatical inaccuracies. Differential Diagnosis Differential diagnosis: Likely upper respiratory infection, viral infection and other Critical Care Time Critical Care Time Critical Care Time: No Discharge Plan Discharge Clinical Impression: Diarrhea, Fatigue Patient Disposition: Home Condition: Stable Instructions: Antibiotic Form, Fatigue (ED) Additional Instructions: Follow-up with primary care provider worsening symptoms go directly to emergency Patient Language: Georgian Prescriptions: No Action aspirin [Adult Aspirin Regimen] 81 mg tablet,delayed release (DR/EC) 81 mg PO DAILY omeprazole 20 mg Tablet,Delayed Release (Dr/Ec) 20 mg PO DAILY Follow-up/Referrals: PHYSICIAN,AROMATHERAPIST [Primary Care Provider] - Stand Alone Forms: Work/School Release IP Time of Disposition: 13:46
== END 2024-10-29 13:53 | disposition home or self-care (01) ==
PROVIDERS: Emergency Provider Nurse Practitioner
DX: R19.7 Diarrhea, unspecified (principal); R53.83 Other fatigue; Z87.891 Personal history of nicotine dependence; E66.9 Obesity, unspecified; K21.9 Gastro-esophageal reflux disease without esophagitis; E78.5 Hyperlipidemia, unspecified; Z79.82 Long term (current) use of aspirin
CPT/HCPCS: 99211; G0463